=== PATIENT | female | born 1965 | race Caucasian/White ===

== ENCOUNTER 2023-10-09 11:36 | Inpatient (IN) | payer OTHER, SELFPAY ==
--- OUTSIDE RECORDS SUMMARY | 2023-10-09 11:40 | XMS_ITS | Clinical Summary ---
Author Organization [employer] [facility] Address [place], [place] [address] Care Team Providers Care Rag Sorter Name Role Phone Ramona Shook MD Unavailable [phone] Cecelia Moulton Primary Care Provider Elva Holly MD Unavailable [phone] Allergies No known active allergies Medications Medication Sig Dispensed Refills Start Date End Date Status IBUPROFEN 200 MG CAP take 600 mg as needed as needed 0 0 11/16/2008 Active cetirizine (ZYRTEC) 10 mg tablet Take 1 tablet by mouth once daily. 0 02/23/2019 Active triamcinolone 0.5% (ARISTOCORT) 0.5 % creamIndications:Bu g bite, initial encounter Apply topically to affected area(s) three times daily. 30 g 09/11/2022 Active polyethylene glycol-electrolyte (GOLYTELY) 236-22.74-6.74 -5.86 gram suspensionIndicatio ns:Colon cancer screening Drink 2 liters (1/2 of prep) the day before colonoscopy and drink 2 liters (other 1/2 of prep) 6 hours before colonoscopy appointment. 4000 mL 02/22/2023 Active LORazepam (ATIVAN) 0.5 mg tabIndications:Anxi ety TAKE ONE TABLET BY MOUTH TWICE DAILY NEEDED FOR ANXIETY 60 Tablet 2 05/08/2023 Active folic acid 1 mg tabletIndications:R heumatoid arthritis of multiple sites with negative rheumatoid factor (HC),High risk medication use TAKE ONE TABLET BY MOUTH ONE TIME DAILY 90 Tablet 05/07/2023 Active methotrexate (RHEUMATREX) 2.5 mg tabletIndications:R heumatoid arthritis of multiple sites with negative rheumatoid factor (HC) TAKE 8 TABLETS BY MOUTH ONCE WEEKLY. 96 Tablet 05/07/2023 Active melatonin 1 mg tablet Take 1 mg by mouth at bedtime. Active Actemra ACTPen 162 mg/0.9 mL subcutaneous penIndications:Rheu matoid arthritis of multiple sites with negative rheumatoid factor (HC) INJECT 1 PEN UNDER THE SKIN EVERY 7 DAYS. 4 mL 3 07/15/2023 Active cephalexin (KEFLEX) 500 mg capsuleIndications: Acute cystitis with hematuria Take 1 Capsule (500 mg) by mouth two times daily for 7 days. 14 Capsule 10/06/2023 10/13/2023 Active Active Problems Problem Noted Date Diagnosed Date Pap smear for cervical cancer screening 09/11/19 Overview: 09/2022 NIL/HPV negative Plan: Pap/HPV due in 5 years Vitamin D deficiency 04/12/2014 Kidney stones 05/01/2011 Gestational diabetes 05/01/2011 Rheumatoid arthritis(714.0) 05/01/2011 Contact dermatitis and other eczema, due to unspecified cause 05/01/2011 Anxiety State, Unspecified 06/10/2008 Encounters Date Type Department Care Team Description 10/09/2023 10:00 AM CDT Orders Only [facility] [address] [place] [address] Lab, [place] Lab 10/09/2023 9:30 AM CDT Ancillary Procedure [facility] [address] [place] [address] Arrived 10/09/2023 8:20 AM CDT Office Visit [facility] [address] [place] [address] Kaley Farias MD UTI (urgent care 10/05, abdominal pressure/pain lower radiates, frequency) 10/09/2023 Travel 10/08/2023 Nurse Triage [facility] [address] [place] [address] Cecelia Moulton PA Urinary Tract Infection 10/06/2023 3:00 PM CDT Nurse/Clinic Staff Only [facility] [address] [facility] [place] [address] Nurse/Clinic Staff Only (Labs virtual visit. ) 10/06/2023 1:20 PM CDT Telemedicine [facility] [address] [place] [phone] Erin Ureña, HYDROELECTRIC STATION OPERATOR Dysuria 10/06/2023 Orders Only [facility] [place] [address] [place] [address] Erin Ureña S, HYDROELECTRIC STATION OPERATOR <No scans attached> 10/06/2023 Travel 07/15/2023 Refill [facility] [address] [place] [address] Elva Holly MD Refill Request (Actemra Actpen) from Last 3 Months Immunizations Name Administration Dates Next Due COVID-19 vaccine (Moderna 100mcg/0.5mL) PF, MDV 09/13/2021,03/30/2021,08/11/2020,2020 COVID-19 vaccine (Moderna 50mcg/0.5mL) 12YO+ BIVALENT PF, MDV 02/22/2022 Influenza A (H1N1), Inactiva hedy (Age >=3 Years) 03/19/2009 Influenza Virus, Unspecified 02/11/2016,02/14/20 14 Influenza, IIV3 (Age >=3 years) 02/06/20 11,02/10/2010,03/10/2009,2004 Influenza, IIV4 03/16/2022,,03/11/2018,2012 Influenza, IIV4 (=>6mos) MDV 01/29/2020, 03/11/2019,02/06/2018,2015,02/07/2015 Influenza, Injectable, Mdck, Quadrivalent, W/preservative 03/19/2023 Td (Age >=7 Years) 10/25/2002 Tdap 05/01/2011 Family History Medical History Relation Name Comments Psoriasis Brother 1 Everardo Hyperlipidemia Brother 2 Félix Hypertension Brother 2 Félix No Known Problems Brother 3 Keny Allergic rhinitis Daughter Carisa Anxiety disorder Daughter Carisa Asthma Daughter Carisa Arthritis Father Cancer Father pancreatic Heart block Father Hypertension Father Heart attack Maternal Grandfather Stroke Maternal Grandmother Other Mother lung disease, n on hereditary Cancer-breast Paternal Aunt Cancer-colon Paternal Grandfather Diabetes Paternal Grandfather Heart Disease Paternal Grandfather Heart attack Paternal Grandfather Lung cancer Paternal Grandmother Other Son Norbert Guillian-Milan Syndrome Anesthesia Malignant Hyperthermia No Family History Cancer-ovarian No Family History Clotting disorder No Family History Relation Name Status Comments Brother 1 Everardo Alive Brother 2 Félix Alive Brother 3 Keny Alive Daughter Carisa Alive Father Maternal Grandfather Maternal Grandmother Mother Paternal Aunt Paternal Grandfather Paternal Grandmother Son Norbert Alive Social History Tobacco Use Types Packs/Day Years Used Date Smoking Tobacco: Never Smokeless Tobacco: Never Tobacco Cessation:Counseling Given: Yes Alcohol Use Standard Drinks/Week Comments Yes 0 (1 standard drink = 0.6 oz pur e alcohol) 2 glasses wine per day PHQ-2 Answer Date Recorded PHQ-2 TOTAL SCORE 0 11/23/2020 Social Connections Answer Date Recorded Frequency of Communication with Friends and Fami ly 0 10/09/2023 Financial Resource Strain Answer Date R ecorded Difficulty of Paying Living Expenses 3 10/09/2023 Difficulty of Paying Living Expenses Not on file 10/09/2023 Food Insecurity Answer Date Recorded Worried About Running Out of Food in the Last Ye ar 1 10/09/2023 Transportation Needs Answer Date Record ed Lack of Transportation (Medical) 1 10/09/2023 Housing Stability Answer Date Recorded Unable to Pay for Housing in the Last Year 1 10/09/2023 Sex and Gender Information Value Date Recorded Sex Assigned at Female 11/17/2020 2:37 PM CDT Gender Identity Not on file Sexual Orientation Straight 11/17/2020 2: 37 PM CDT Obstetrics History Para Term AB IAB SAB Ectopic Multiple Livin g Live Births 2 2 2 2 Date Outcome GA Total Labor Labor/2nd/3rd Weight Sex Delivery Anes PTL Bhakti A1 A5 Name Cl in 35w 0d 36w 0d Last Filed Vital Signs Vital Sign Reading Time Taken Comments Blood Pressure 115/81 10/09/2023 8:29 AM CDT Pulse 76 10/09/2023 8:29 AM CDT Temperature 36.6 ??C (97.9 ??F) 10/09/2023 8:29 AM CD T Respiratory Rate 16 06/11/2023 10:05 AM 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 Oxygen Saturation 97% 10/09/2023 8:29 AM CDT Inhaled Oxygen Concentration - - Weight 78.6 kg (173 lb 3.2 oz) 10/09/2023 8:29 A M CDT Height 166.4 cm (5' 5.5) 09/11/2022 8:40 AM CDT Body Mass Index 28.38 09/11/2022 8:40 AM CDT Plan of Treatment Upcoming Encounters Date Type Department Care Team (Late st Contact Info) Description 12/24/2023 10:00 AM CDT Office Visit [facility] [address] [place] [address] Elva Holly MD [address] [place] [address] Health Maintenance Due Date Last Done Comments Pneumococcal series for age 6-64 (1 of 2 - PCV) 1971 HIV for age 15-65 1980 Zoster (shingles) series for age 50+ (1 of 2) 1984 Tetanus booster 05/01/2021 05/01/2011, 04/13, 10/25/2002 Fecal testing non-DNA (FIT,FOBT,iFOBT) for age 45-75 07/26/2021 07/26/2020, 12/19/2017, 10/31/2016 Depression screening for age 12+ 11/23/2021 11/23/2020, 10/21/2019, 10/03/2018, Additional history exists COVID-19 vaccine series ( season) 2023 03/19/2023, 02/22/2022, 09/13/2021, Additional history exists BMI (ht and wt on same day) for age 18+ 09/12/2023 09/11/2022, 01/04/2022, 11/23/2020, Additional history exists Influenza for age 50-64 01/12/2024 03/19/20 23, 03/16/2022, 02/09/2021, Additional history exists Mammogram for age 45-75 01/25/2024 01/25/20, 11/18/2020, 11/01/2017, Additional history exists Lipids for age 45-75 09/12/2027 09/11/2022, 11/18/2020, 09/02/2018, Additional history exists Pap test for age 21-65 09/12/2027 , 09/11/2022, 09/02/2018, Additional history exists Tdap Completed 05/01/2011 Hepatitis C screening for ag e 18-79 Completed 07/23/2019 Medical Devices Implanted Type Area Trench Digger Device Identifier Shelf Expiration Date Model / Serial / Lot Stent Uret [id number] Silhouette - [id number] Implanted:Qty: 1 on 09/13/2016 by Félix Dunaway MD at [facility] Right: [employer] [id number] / / [id number] Procedures Procedure Name Priority Date/Time Associated Diagnosis Comments CT ABDOMEN PELVIS STONE PROTOCOL WO STAT 10/09/2023 9:40 AM CDT Pelvic pain Complicated UTI (urinary tract infection) History of nephrolithiasis CBC WITH AUTO DIFFERENTIAL STAT 10/09/2023 9:25 AM CDT Pelvic pain Complicated UTI (urinary tract infection) History of nephrolithiasis CBC WITH AUTO DIFFERENTIAL STAT 10/09/2023 9:25 AM CDT Pelvic pain Complicated UTI (urinary tract infection) History of nephrolithiasis UA W/ SEDIMENT EXAM REFLEXED PER CRITERIA Routine 10/09/2023 8:41 AM CDT Pelvic pain Complicated UTI (urinary tract infection) History of nephrolithiasis TRICHOMONAS, SANDRA, AND BACTERIAL VAGINOSIS BY JORGE Routine 10/06/2023 2:34 PM CDT UTI symptoms URINALYSIS MICROSCOPIC STAT 10/06/2023 2:20 PM CDT UTI symptoms URINE CULTURE STAT 10/06/2023 2:20 PM CDT UTI symptoms UA W/ SEDIMENT EXAM REFLEXED PER CRITERIA STAT 10/06/2023 2:20 PM CDT UTI symptoms XR MAMMO THERESA BILAT SCREEN Routine 01/24/2023 1:25 PM CDT Screening mammogram for breast cancer LIPID PANEL W REFLEX MEASURED LDL Routine 09/11/2022 9:41 AM CDT Screening cholesterol level HPV THIN PREP Routine 09/11/2022 9:15 AM CDT Screening for cervical cancer OCCULT BLOOD IFOBT STOOL Routine 07/26/2020 11:15 AM CDT Colon cancer screening ANTI HCV Routine 07/23/2019 11:49 AM CDT Rheumatoid arthritis of multiple sites with negative rheumatoid factor (HC) from Last 3 Months or Most Recently Relevant to Health Maintenance Results * CT ABDOMEN PELVIS STONE PROTOCOL WO (10/09/2023 9:40 AM CDT) Anatomical Region Laterality Modality Abdomen, Pelvis, AORTA, LIVER, SPLEEN Computed Tomography 10/09/2023 10:1 8 AM CDT Impressions 10/09/2023 10:18 AM CDT 1. Perforated sigmoid diverticulitis with a 2.9 centimeter adjacent abscess versus phlegmon. This is located deep in the central pelvis and is unlikely to be accessible percutaneously. 2. Bilateral nephrolithiasis. Please note that all CT scans at this facility use dose modulation, iterative reconstruction, and/or weight-based dosing when appropriate to reduce radiation dose to as low as reasonably achievable. Dictated by Jzazmine [facility] MD @ 10/09/2023 10:18:53 AM (Electronically Signed) Narrative 10/09/2023 10:18 AM CDT For Patients: ??As a result of the Century Cures Act, medical imaging exams and procedure reports are released immediately into your electronic medical record. ??You may view this report before your referring provider. ??If you have questions, please contact your health care provider. INDICATION: Pelvic pain, complicated urinary tract infection, history of nephrolithiasis COMPARISON: 08/23/2021 TECHNIQUE: CT of the abdomen and pelvis without intravenous contrast. Multiplanar reformats are included. Contrast: None FINDINGS: Lung bases: Normal. Liver: Normal. No mass. Gallbladder and bile ducts: Cholecystectomy. Pancreas: Normal. Spleen: Normal. Adrenal glands: Normal. Kidneys: Normal renal size and position. No perinephric stranding. No cyst or solid mass. Multiple bilateral nonobstructing renal calculi measuring up to 3-4 millimeters. Mild bilateral pelviectasis and ureterectasis. No ureteral calculi seen. Urinary bladder: Normal. Vessels: Few scattered atherosclerotic vascular calcifications. Pelvis: No cyst or mass. Bowel: Sigmoid diverticulitis. There is a short segment of sigmoid and Marguerite diverticular thickening. There is significant adjacent edema and a small amount of fluid and extraluminal air. The area of phlegmonous change with extraluminal air measures about 1.6 x 2.9 x 2.2 centimeters and is located deep within the central pelvis. Moderate stool burden. Appendectomy. No dilated or inflamed appearing small bowel. Lymph nodes: Mildly prominent mesenteric lymph nodes appear to be reactive. No worrisome adenopathy. Peritoneum: No ascites. No free air. Bones: No fractures. No focal worrisome bone lesions. Abdominal wall: No hernia. Procedure Note Jazzmine [facility] MD - 10/09/2023 For Patients: As a result of the Cures Act, medical imagingexams and procedure reports are released immediately into your electronicmedical record. You may view this report before your referring provider.If you have questions, please contact your health care provider. INDICATION: Pelvic pain, complicated urinary tract infection, history ofnephrolithiasis COMPARISON: 08/23/2021 TECHNIQUE: CT of the abdomen and pelvis without intravenous contrast. Multiplanarreformats are included. Contrast: None FINDINGS: Lung bases: Normal. Liver: Normal. No mass. Gallbladder and bile ducts: Cholecystectomy. Pancreas: Normal. Spleen: Normal. Adrenal glands: Normal. Kidneys: Normal renal size and position. No perinephric stranding. No cystor solid mass. Multiple bilateral nonobstructing renal calculi measuringup to 3-4 millimeters. Mild bilateral pelviectasis and ureterectasis. Noureteral calculi seen. Urinary bladder: Normal. Vessels: Few scattered atherosclerotic vascular calcifications. Pelvis: No cyst or mass. Bowel: Sigmoid diverticulitis. There is a short segment of sigmoid andPeri diverticular thickening. There is significant adjacent edema and asmall amount of fluid and extraluminal air. The area of phlegmonous changewith extraluminal air measures about 1.6 x 2.9 x 2.2 centimeters and islocated deep within the central pelvis. Moderate stool burden.Appendectomy. No dilated or inflamed appearing small bowel. Lymph nodes: Mildly prominent mesenteric lymph nodes appear to bereactive. No worrisome adenopathy. Peritoneum: No ascites. No free air. Bones: No fractures. No focal worrisome bone lesions. Abdominal wall: No hernia. IMPRESSION: 1. Perforated sigmoid diverticulitis with a 2.9 centimeter adjacentabscess versus phlegmon. This is located deep in the central pelvis and isunlikely to be accessible percutaneously. 2. Bilateral nephrolithiasis. Please note that all CT scans at this facility use dose modulation,iterative reconstruction, and/or weight-based dosing when appropriate toreduce radiation dose to as low as reasonably achievable. Dictated by Jazzmine [facility] MD @ 10/09/2023 10:18:53 AM (Electronically Signed) Kaley Farias MD CT * (ABNORMAL) CBC WITH AUTO DIFFERENTIAL (10/09/2023 9:25 AM CDT) Pathologist [facility] WHITE BLOOD COUNT 9.5 4.5 - 11.0 thou/cu mm 10/09/2023 9:29 AM CDT [facility] RED BLOOD COUNT 4.73 4.00 - 5.20 mil/cu mm 10/09/2023 9:29 AM CDT [facility] HEMOGLOBIN 14.8 12.0 - 16.0 g/dL 10/09/2023 9:29 AM CDT [facility] HEMATOCRIT 43.7 33.0 - 51.0 % 10/09/2023 9:29 AM CDT [facility] MCV 92 80 - 100 fL 10/09/2023 9:29 AM CDT [facility] MCH 31.3 26.0 - 34.0 pg 10/09/2023 9:29 AM CDT [facility] MCHC 33.9 32.0 - 36.0 g/dL 10/09/2023 9:29 AM CDT [facility] RDW 13.4 11.5 - 15.5 % 10/09/2023 9:29 AM CDT [facility] PLATELET COUNT 170 140 - 440 thou/cu mm 10/09/2023 9:29 AM CDT [facility] MPV 10.3 6.5 - 11.0 fL 10/09/2023 9:29 AM CDT [facility] % NEUT 77.8 % 10/09/2023 9:29 AM CDT [facility] % LYMPH 8.5 % 10/09/2023 9:29 AM CDT [facility] % MONO 11.1 % 10/09/2023 9:29 AM CDT [facility] % EOS 2.4 % 10/09/2023 9:29 AM CDT [facility] % BASO 0.2 % 10/09/2023 9:29 AM CDT [facility] ABSOLUTE NEUTROPHILS 7.4(H) 1.7 - 7.0 thou/cu mm 10/09/2023 9:29 AM CDT [facility] ABSOLUTE LYMPHOCYTES 0.8(L) 0.9 - 2.9 thou/cu mm 10/09/2023 9:29 AM CDT [facility] ABSOLUTE MONOCYTES 1.1(H) <0.9 thou/cu mm 10/09/2023 9:29 AM CDT [facility] ABSOLUTE EOSINOPHILS 0.2 <0.5 thou/cu mm 10/09/2023 9:29 AM CDT [facility] ABSOLUTE BASOPHILS 0.0 <0.3 thou/cu mm 10/09/2023 9:29 AM CDT [facility] Blood BLOOD SPECIMEN / Unknown Venipuncture / Unknown 10/09/2023 9:25 AM CDT 10/09/2023 9:26 AM CDT Kaley Farias MD HEMATOLOGY [facility] [address] [place] [address], * UA W/ SEDIMENT EXAM REFLEXED PER CRITERIA (10/09/2023 8:41 AM CDT) Only the most recent of2 resultswithin the time period is included. COLOR Yellow Yellow Color 10/09/2023 9:15 AM CDT [facility] CLARITY Clear Clear Clarity 10/09/2023 9:15 AM CDT [facility] SPECIFIC GRAVITY,URINE 1.010 1.010, 1.015, 1.020, 1.025 10/09/2023 9:15 AM CDT [facility] PH,URINE 7.0 6.0, 7.0, 8.0, 5.5, 6.5, 7.5, 8.5 10/09/2023 9:15 AM CDT [facility] UROBILINOGEN, QUALITATIVE Normal Normal EU/dl 10/09/2023 9:15 AM CDT [facility] PROTEIN, URINE Negative Negative mg/dL 10/09/2023 9:15 AM CDT [facility] GLUCOSE, URINE Negative Negative mg/dL 10/09/2023 9:15 AM CDT [facility] KETONES,URINE Negative Negative mg/dL 10/09/2023 9:15 AM CDT [facility] BILIRUBIN,URI NE Negative Negative 10/09/2023 9:15 AM CDT [facility] OCCULT BLOOD,URINE Negative Negative 10/09/2023 9:15 AM CDT [facility] NITRITE Negative Negative 10/09/2023 9:15 AM CDT [facility] LEUKOCYTE ESTERASE Negative Negative 10/09/2023 9:15 AM CDT [facility] Urine URINE SPECIMEN / Unknown Non-Blood / Unknown 10/09/2023 8:41 AM CDT 10/09/2023 9:12 AM CDT Kaley Farias MD URINE [facility] [address] [place] [id number], * TRICHOMONAS, SANDRA, AND BACTERIAL VAGINOSIS BY JORGE (10/06/2023 2:34 PM CDT) SANDRA SPECIES Negative Negative 1:21 AM CDT [facility] SANDRA GLABRATA Negative Negative 10/07/2023 1:21 AM CDT [facility] TRICHOMONAS VVA Negative Negative 1:21 AM CDT [facility] BACTERIAL VAGINOSIS Negative Negative 10/07/2023 1:21 AM CDT [facility] Other VAGINAL SWAB / Unknown Non-Blood / Unknown 10/06/2023 2:34 PM CDT 10/06/2023 2:34 PM CDT Erin Ureña NP MICROBIOLOGY [facility] [address] [place] [address], * (ABNORMAL) URINALYSIS MICROSCOPIC (10/06/2023 2:20 PM CDT) RBC 0-2 0-2, None Seen /HPF 10/06/2023 10:09 PM CDT [facility] WBC >100(A) 0-2, 3-5, None Seen /HPF 10/06/2023 10:09 PM CDT [facility] BACTERIA Few None Seen, Rare, Few Bacteria/ HPF 10/06/2023 10:09 PM CDT [facility] EPITHELIAL CELLS None Seen None Seen, Few Epi/HPF 10/06/2023 10:09 PM CDT [facility] HYALINE CASTS 0-2 0-2, 3-5 /LPF 10/06/2023 10:09 PM CDT [facility] Urine URINE SPECIMEN / Unknown Non-Blood / Unknown 10/06/2023 2:20 PM CDT 10/06/2023 2:20 PM CDT Erin Ureña NP URINE [facility] [address] [place] [address], * (ABNORMAL) URINE CULTURE (10/06/2023 2:20 PM CDT) CULTURE RESULT(A) 10/09/2023 7:09 AM CDT [facility] CULTURE >100,000 CFU/mL Escherichia coli 10/09/2023 7:09 AM CDT [facility] Urine URINE SPECIMEN / Unknown Non-Blood / Unknown 10/06/2023 2:20 PM CDT 10/06/2023 2:20 PM CDT Narrative Organism Antibiotic Method Susceptibility Escherichia coli TRIMETHOPRIM/SULF <=1/19: S Escherichia coli AMPICILLIN <=2: S Escherichia coli CEFAZOLIN-UC <=4: S Comment:Cefazolin-UC interpretations are for therapy of uncomplicated UTIs due to E.coli, K.pneumoniae, or P.mirablis. Cefazolin breakpoint is used as a surrogate to predict results for the oral agents - cefdinir, cefuroxime, and cephalexin, when used for therapy of uncomplicated UTIs due to E coli, K, pneumoniae, and P. mirabilis. The FDA recommends cefadroxil susceptibility can be deduced from cefazolin. Escherichia coli GENTAMICIN <=1: S Escherichia coli CEFTRIAXONE <=1: S Escherichia coli CEFTAZIDIME <=1: S Escherichia coli LEVOFLOXACIN <=0.12: S Escherichia coli CIPROFLOXACIN <=0.25: S Escherichia coli PIPERACILLIN/TAZO <=4: S Escherichia coli AMPICILLIN/SULBACTAM <=2: S Escherichia coli CEFEPIME <=1: S Escherichia coli TOBRAMYCIN <=1: S Escherichia coli MEROPENEM <=0.25: S Escherichia coli NITROFURANTOIN <=16: S Erin Ureña NP MICROBIOLOGY [facility] [address] [place] [address], [place] * XR MAMMO THERESA BILAT SCREEN (01/24/2023 1:25 PM CDT) Anatomical Region Laterality Modality BREASTS, Breast Left, Breast Right Bilateral Mammography Impressions 01/24/2023 4:02 PM CDT ??There is no radiographic evidence for malignancy. ??Recommend annual mammograms. MAMMOGRAM ASSESSMENT: ??ACR 1 Negative PATIENTS: You will also receive a letter with your examination results in an easy to read format. ??If you have questions about your results, please contact your referring provider. Narrative 01/24/2023 4:02 PM CDT For Patients: As a result of the Cures Act, medical imaging exams and procedure reports are released immediately into your electronic medical record. You may view this report before your referring provider. If you have questions, please contact your health care provider. XR MAMMO THERESA BILAT SCREEN [[id number]] CLINICAL HISTORY: ??This is an asymptomatic 57 y.o. patient. INDICATION FOR EXAM: Mammogram Screening. TECHNIQUE: CC & MLO views were obtained. ??This study was evaluated with the assistance of Computer-Aided Detection. Breast Tomosynthesis was used in interpretation. COMPARISON FILM: Yes 11/18/20 [employer] 11/01/17 [facility] FINDINGS: ??The breasts are heterogeneously dense, which may obscure small masses. There are no dominant masses, suspicious micro calcifications or areas of architectural distortion. Cecelia ROCA MAMMO * (ABNORMAL) LIPID PANEL W REFLEX MEASURED LDL (09/11/2022 9:41 AM CDT) CHOLESTEROL,TOTAL 213 mg/dL 023 6:49 PM CDT [facility] Comment: Cholesterol, Total Reference Ranges Desirable <200 mg/dL Borderline 200-239 mg/dL High >=240 mg/dL TRIGLYCERIDES 83 <150 mg/dL 09/11/2022 6:49 PM CDT [facility] HDL CHOLESTEROL 65 >40 mg/dL 3 6:49 PM CDT [facility] NON-HDL CHOLESTEROL 148(H) <145 mg/dl 09/11/2022 6:49 PM CDT [facility] CHOL/HDL RATIO 3.28 <4.50 09/11/2022 6:49 PM CDT [facility] LDL CHOLESTEROL 131(H) <=130 mg/dL 09/11/2022 6:49 PM CDT [facility] VLDL CHOLESTEROL 17(L) >30 mg/dL 09/12/19 6:49 PM CDT [facility] PROVIDER ORDERED STATUS RANDOM 09/11/2022 6:49 PM CDT [facility] Blood BLOOD SPECIMEN / Unknown Venipuncture / Unknown 09/11/2022 9:41 AM CDT 09/11/2022 9:43 AM CDT Cecelia ROCA CHEMISTRY [facility] [address] [place] [address], * HPV HIGH RISK (09/11/2022 9:15 AM CDT) TYPE 16 Negative Negative 09/14/2022 11:02 AM CDT [facility] TYPE 18 Negative Negative 09/14/2022 11:02 AM CDT [facility] OTHER HIGH RISK TYPES Negative Negative 09/14/2022 11:02 AM CDT [facility] Other (Cervical) Non-Blood / Unknown 09/11/2022 9:15 AM CDT 09/12/2022 1:12 PM CDT Narrative [facility] - 09/14/2022 11:02 AM CDT HPV types 16, 18, 31, 33, 35, 39, 45, 51, 52, 56, 58, 59, 66 and 68 DNA were undetectable or below the pre-set threshold. Methodology: Exaptiveas 4800 HPV Test Cecelia ROCA [facility]OLOG[facility] [address] [place] [address], [place] * OCCULT BLOOD IFOBT STOOL (07/26/2020 11:15 AM CDT) STOOL BLOOD ,IFOBT Negative Negative 07/27/2020 11:48 AM CDT [facility] Stool STOOL SPECIMEN / Unknown Non-Blood / Unknown 07/26/2020 11:15 AM CDT 07/27/2020 11:36 AM CDT Cecelia [facility] Performing Organization Address City/[facility]/ZIP Co de Phone Number [facility] [address] [place] [address], * ANTI HCV (07/23/2019 11:49 AM CDT) Pathologist [facility] HEPATITIS C ANTIBODY Non-React lul Non-React lul 07/23/2019 4:04 PM CDT [facility] Comment:Antibodies to HCV no t detected; does not exclude the possibility of exposure to HCV. Blood BLOOD SPECIMEN / Unknown Venipuncture / Unknown 07/23/2019 11:49 AM CDT 07/23/2019 11:49 AM CDT Elva Holly MD SEND OUTS [facility] [address] [place] [address], [place] from Last 3 Months or Most Recently Relevant to Health Maintenance Advance Directives * Full Code (Latest Code Status on File) Date Activated Date Inactivated Comments 09/13/2016 11:17 AM 09/13/2016 6:48 PM Care Teams Rag Sorter Relationship Specialty Start Date End Date Cecelia Moulton PA [address] [place] [address] PCP - General Physician Corporate Account Executive 02/23/19 Ramona Shook MD Rheumatology 04/14/14 Elva Holly MD [address] [facility] [address] [place] [address] Rheumatology Rheumatology 07/23/19
--- OUTSIDE RECORDS SUMMARY | 2023-10-09 11:40 | XMS_ITS | Continuity of Care Document ---
Author Organization [facility] Address [address] [place] [address] Phone Care Team Providers Care Braille Translator Name Role Phone Ramona Shook MD Unavailable Unavailable Allergies, Adverse Reactions, Alerts Substance Reaction Status Criticality erythromycin base Rash Active No Informa tion amoxicillin Rash Active No Information Medications Medication Instructions Dosage Effective Dates (start - stop) Status Comments Actemra ACTPen 162 mg/0.9 mL subcutaneous pen injector inject (162MG) by subcutaneous route every week 162 MG - Active PA approved from 11/20/18 through 12/19/20. barry methotrexate sodium 2.5 mg tablet 8 tabs PO weekly - Active Patient ta kes on Saturday Zyrtec 10 mg capsule take 1 tablet by oral route every day 1 tablet - Active ibuprofen 600 mg Tab as needed - Active lorazepam 0.5 mg Tab asw needed - Active Actemra ACTPen 162 mg/0.9 mL subcutaneous pen injector inject (162MG) by subcutaneous route every week 162 MG - No Longer Active PA approved from 11/20/18 through 12/19/20. barry Procedures Procedure Date Office/Outpatient Visit, Est Routine Venipuncture Assay Of Serum Albumin Assay Of Creatinine Transferase (Ast) (Sgot) Alanine Amino (Alt) (Sgpt) Complete Cbc WAuto Diff Wbc Office/Outpatient Visit, Est Routine Venipuncture Complete Cbc WAuto Diff Wbc Assay Of Serum Albumin Assay Of Creatinine Transferase (Ast) (Sgot) Alanine Amino (Alt) (Sgpt) Office/Outpatient Visit, Est Routine Venipuncture Assay Of Serum Albumin Assay Of Creatinine Transferase (Ast) (Sgot) Alanine Amino (Alt) (Sgpt) Complete Cbc WAuto Diff Wbc Office/Outpatient Visit, Est Office/Outpatient Visit, Est Routine Venipuncture Complete Cbc WAuto Diff Wbc Assay Of Serum Albumin Assay Of Creatinine Transferase (Ast) (Sgot) Alanine Amino (Alt) (Sgpt) Tb Test, Cell Immun Measure Office/Outpatient Visit, Est Routine Venipuncture Complete Cbc WAuto Diff Wbc Rbc Sed Rate, Nonautomated Transferase (Ast) (Sgot) CReactive Protein Office/Outpatient Visit, Est Office/Outpatient Visit, Est Office/Outpatient Visit, Est Office/Outpatient Visit, Est Office/Outpatient Visit, Est Routine Venipuncture Complete Cbc WAuto Diff Wbc Assay Of Serum Albumin Assay Of Creatinine Transferase (Ast) (Sgot) Alanine Amino (Alt) (Sgpt) Office/Outpatient Visit, Est Office/Outpatient Visit, Est Routine Venipuncture CCP Antibody Rheumatoid Factor, IGM Rheumatoid Factor, IGG, IGA Office/Outpatient Visit, Est Office/Outpatient Visit, Est Office/Outpatient Visit, Est Routine Venipuncture Complete Cbc WAuto Diff Wbc Rbc Sed Rate, Nonautomated CReactive Protein Assay Of Serum Albumin Assay Of Creatinine Transferase (Ast) (Sgot) Alanine Amino (Alt) (Sgpt) Office/Outpatient Visit, Est Office/Outpatient Visit, Est Routine Venipuncture Complete Cbc WAuto Diff Wbc Assay Of Serum Albumin Assay Of Creatinine Transferase Ast Sgot Alanine Amino Alt Sgpt Office/Outpatient Visit, Est Routine Venipuncture Complete Cbc WAuto Diff Wbc Assay Of Serum Albumin Assay Of Creatinine Transferase Ast Sgot Alanine Amino Alt Sgpt Office/Outpatient Visit, Est Routine Venipuncture CReactive Protein Complete Cbc WAuto Diff Wbc Assay Of Serum Albumin Assay Of Creatinine Transferase Ast Sgot Alanine Amino Alt Sgpt Advance Directives Directive Yes / No Effective Date File Name No Information Encounters Encounter Description Practice Location Reason(s) For Visit Diagnoses Date Provider Providers Copied on Encounter [facility] , [address], [place], [address], [place] tel:[phone] [facility] , No Information 0 Boone Greene. [facility] [address], [place], [address], [place]. tel:[phone] [facility] , [address], [place], [address], [place] tel:[phone] [facility] , No Information 0 Federica Bolivar. [facility] [address], [place], [address], [place]. tel:[phone] [facility] , [address], [place], [address], [place] tel:[phone] [facility] , No Information 0 Boone Greene. [facility] [address], [place], [address], [place]. tel:[phone] Office/Outpa tient Visit, Est [facility] , [address], [place], [address], [place] tel:[phone] [facility] , Rheumatoid arthritis (chief complaint)Co ugh (chief complaint)Mo nitor Chronic High Risk Meds (chief complaint) Rheu arthritis w rheu factor mult site w/o org/sys involvCoughO ther intermediate card tender (current) drug therapy 9 Boone Greene. [facility] [address], [place], [address], [place]. tel:[phone] Referring Provider: Ramona Carrington, [facility] [address], [place], [address]. tel:[phone] Office/Outpa tient Visit, Est [facility] , [address], [place], [address], [place] tel:[phone] [facility] , Rheumatoid arthritis (chief complaint) Rheu arthritis w rheu factor mult site w/o org/sys involvEffusi on, right kneeOther custodial (current) drug therapy 9 Boone Greene. [facility] [address], [place], [address], [place]. tel:[phone] Referring Provider: Ramona Carrington, [facility] [address], [place], [address]. tel:[phone] Office/Outpa tient Visit, Est [facility] , [address], [place], [address], [place] tel:[phone] [facility] , Rheumatoid arthritis (chief complaint)Ri ght knee pain (chief complaint)Mo nitor Chronic High Risk Meds (chief complaint) Rheu arthritis w rheu factor mult site w/o org/sys involvPain in right kneeVitamin D deficiencyOt her intermediate card tender (current) drug therapy 9 Boone Greene. [facility] [address], [place], [address], [place]. tel:[phone] Referring Provider: Ramona Carrington, [facility] [address], [place], [address]. tel:[phone] Office/Outpa tient Visit, Est [facility] , [address], [place], [address], [place] tel:[phone] [facility] , Rheumatoid arthritis (chief complaint)Vi tamin D deficiency (chief complaint)Mo nitor Chronic High Risk Meds (chief complaint) Rheu arthritis w rheu factor mult site w/o org/sys involvOther custodial (current) drug therapyPain in left hipPain in right knee 9 Boone Greene. [facility] [address], [place], [address], [place]. tel:[phone] Referring Provider: Ramona Carrington, [facility] [address], [place], [address]. tel:[phone] Office/Outpa tient Visit, Est [facility] , [address], [place], [address], [place] tel:[phone] [facility] , Rheumatoid arthritis (chief complaint)Mo nitor Chronic High Risk Meds (chief complaint) Rheu arthritis w rheu factor [facility] site w/o org/sys involvOther custodial (current) drug therapy 0 8 Boone Greene. [facility] [address], [place], [address], [place]. tel:[phone] Referring Provider: Ramona Carrington, [facility] [address], [place], [address]. tel:[phone] Office/Outpa tient Visit, Est [facility] , [address], [place], [address], [place] tel:[phone] [facility] Rheumatoid arthritis (chief complaint)Ri ght wrist tenosynovect carmita (chief complaint)Mo nitor Chronic High Risk Meds (chief complaint) Rheu arthritis w rheu factor [facility] site w/o org/sys involvOther synovitis and tenosynoviti s, right handOther acquired deformities of unspecified footOther custodial (current) drug therapy 8 Boone Greene. [facility] [address], [place], [address], [place]. tel:[phone] Referring Provider: Ramona Carrington, [facility] [address], [place], [address]. tel:[phone] Office/Outpa tient Visit, Est [facility] , [address], [place], [address], [place] tel:[phone] [facility] , Rheumatoid arthritis (chief complaint)Te nosynovitis right wrist (chief complaint)Rh eumatoid nodules (chief complaint)Fo ot deformities (chief complaint)Dr rosales monitoring (chief complaint) RA w/ rheumatoid factor of multiple sitesOther synovitis and tenosynoviti s, right handRheumato id nodule, right handOther acquired hammer toesLong term current drug therapy 8 Boone Greene. [facility] [address], [place], [address], [place]. tel:[phone] Referring Provider: Ramona Carrington, [facility] [address], [place], [address]. tel:[phone] Office/Outpa tient Visit, Est [facility] , [address], [place], [address], [place] tel:[phone] [facility] , Rheumatoid arthritis (chief complaint)Ri ght wrist pain (chief complaint)Mo nitor Chronic High Risk Meds (chief complaint) RA w/ rheumatoid factor of multiple sitesOther synovitis and tenosynoviti s, right handOther acquired deformities of unspecified footLong term current drug therapy 8 Boone Greene. [facility] [address], [place], [address], [place]. tel:[phone] Referring Provider: Ramona Carrington, [facility] [address], [place], [address]. tel:[phone] Office/Outpa tient Visit, Est [facility] , [address], [place], [address], [place] tel:[phone] [facility] , Rheumatoid arthritis (chief complaint)Mo nitor Chronic High Risk Meds (chief complaint) RA w/ rheumatoid factor of multiple sitesPain in unspecified footOther synovitis and tenosynoviti s, right handLong term current drug therapy 7 Boone Greene. [facility] [address], [place], [address], [place]. tel:[phone] Referring Provider: Ramona Carrington, [facility] [address], [place], [address]. tel:[phone] Office/Outpa tient Visit, Est [facility] , [address], [place], [address], [place] tel:[phone] [facility] , Rheumatoid arthritis (chief complaint)Mo nitor Chronic High Risk Meds (chief complaint)Medina mmer toes (chief complaint) RA w/ rheumatoid factor of multiple sitesPneumon iaOther acquired hammer toesLong term current drug therapy 7 Boone Greene. [facility] [address], [place], [address], [place]. tel:[phone] Referring Provider: Ramona Carrington, [facility] [address], [place], [address]. tel:[phone] Office/Outpa tient Visit, Est [facility] , [address], [place], [address], [place] tel:[phone] [facility] , Rheumatoid arthritis (chief complaint)Mo nitor Chronic High Risk Meds (chief complaint) RA w/ rheumatoid factor of multiple sitesPain in left hipLong term current drug therapy 6 Boone Greene. [facility] [address], [place], [address], [place]. tel:[phone] Referring Provider: Ramona Carrington, [facility] [address], [place], [address]. tel:[phone] Office/Outpa tient Visit, Est [facility] , [address], [place], [address], [place] tel:[phone] [facility] Rheumatoid arthritis (chief complaint)Mo nitor Chronic High Risk Meds (chief complaint) RA w/ rheumatoid factor of multiple sitesLong term current drug therapy Boone Greene. [facility] [address], [place], [address], [place]. tel:[phone] Referring Provider: Ramona Carrington, [facility] [address], [place], [address]. tel:[phone] Office/Outpa tient Visit, Est [facility] , [address], [place], [address], [place] tel:[phone] [facility] , Rheumatoid arthritis (chief complaint)Mo nitor Chronic High Risk Meds (chief complaint) Rheumatoid arthritisThe rapeutic Drug Monitoring Boone Greene. [facility] [address], [place], [address], [place]. tel:[phone] Referring Provider: Ramona Carrington, [facility] [address], [place], [address]. tel:[phone] Office/Outpa tient Visit, Est [facility] , [address], [place], [address], [place] tel:[phone] [facility] , Rheumatoid arthritis (chief complaint)Mo nitor Chronic High Risk Meds (chief complaint) Rheumatoid ArthritisThe rapeutic Drug Monitoring Boone Greene. [facility] [address], [place], [address], [place]. tel:[phone] Referring Provider: Ramona Carrington, [facility] [address], [place], [address]. tel:[phone] Office/Outpa tient Visit, Est [facility] , [address], [place], [address], [place] tel:[phone] [facility] , Rheumatoid Arthritis (chief complaint)Mo nitor chronic high risk medications (chief complaint) Rheumatoid ArthritisThe rapeutic Drug Monitoring Boone Greene. [facility] [address], [place], [address], [place]. tel:[phone] Referring Provider: Ramona Carrington, [facility] [address], [place], [address]. tel:[phone] Office/Outpa tient Visit, Est [facility] , [address], [place], [address], [place] tel:[phone] [facility] , Rheumatoid Arthritis (chief complaint)Dr y eyes (chief complaint)Mo nitor chronic high risk medications (chief complaint) Rheumatoid ArthritisOth er tenosynoviti s of hand and wristTherape [facility] Drug MonitoringTe ar film insufficienc y, unspecified 4 Boone Greene. [facility] [address], [place], [address], [place]. tel:[phone] Referring Provider: Ramona Carrington, [facility] [address], [place], [address]. tel:[phone] Office/Outpa tient Visit, Est [facility] , [address], [place], [address], [place] tel:[phone] [facility] , Rheumatoid Arthritis (chief complaint)Mo nitor chronic high risk medications (chief complaint) Rheumatoid [facility]ritisThe [facility] Drug MonitoringTe ar film insufficienc y, unspecified 3 Boone Greene. [facility] [address], [place], [address], [place]. tel:[phone] Referring Provider: Ramona Carrington, [facility] [address], [place], [address]. tel:[phone] Office/Outpa tient Visit, Est [facility] , [address], [place], [address], [place] tel:[phone] [facility] , Rheumatoid Arthritis (chief complaint)Mo nitor chronic high risk medications (chief complaint) Rheumatoid ArthritisGan glion, unspecifiedE nthesopathy of hip regionTherap eutic Drug Monitoring 3 Boone Greene. [facility] [address], [place], [address], [place]. tel:[phone] Referring Provider: Ramona Carrington, [facility] [address], [place], [address]. tel:[phone] Office/Outpa tient Visit, Est [facility] , [address], [place], [address], [place] tel:[phone] [facility] , Rheumatoid Arthritis (chief complaint)Mo nitor chronic high risk medications (chief complaint) Rheumatoid ArthritisThe rapeutic Drug Monitoring 0 3 Boone Greene. [facility] [address], [place], [address], [place]. tel:[phone] Referring Provider: Rmaona Carrington, [facility] [address], [place], [address]. tel:[phone] Office/Outpa tient Visit, Est [facility] , [address], [place], [address], [place] tel:[phone] [facility] , Rheumatoid Arthritis (chief complaint)Mo nitor chronic high risk medications (chief complaint) Rheumatoid ArthritisPai n in limbTherapeu tic Drug Monitoring 2 Boone Greene. [facility] [address], [place], [address], [place]. tel:[phone] Family History Family Member Type Diagnosis Age At Onset father Problem (finding) hypertension Father Problem (finding) Allergies Paternal grandfather Problem (finding) cancer of colon maternal grandmother Problem (finding) hypertension Father Problem (finding) malignant neoplasm of p ancreas Paternal grandfather Problem (finding) Diabetes mellit us maternal grandfather Problem (finding) heart disease Brother Problem (finding) Allergies Payers Payer name Insurance type Covered green party ID Jovan ceja(s) [facility] [id number] Social History Type Description Quantity Date Captured Comments Alcohol Use Details Unknown Caffeine Use Details Unknown Tobacco Use Status No Information Smoking Status No Information Sex Female Chief Complaint And Reason For Visit No Information Reason For Referral Reason For Referral No Information Plan Of Treatment Date Type Action Status Referral Ordered: Coretta Healy -Hand surgery (related to Other synovitis and tenosynovitis, right hand) ordered Referral Referred To: Coretta Healy [address] [place] [address] [place], [place] [id number] Ordered: Referrals: Hand surgery. oCretta Healy. Evaluate and treat ordered History Of Present Illness Encounter Date Complaint History Of Prese nt Illness Rheumatoid arthritis Cough Monitor Chronic High Risk Meds Rheumatoid arthritis Rheumatoid arthritis Right knee pain Monitor Chronic High Risk Meds Rheumatoid arthritis Vitamin D deficiency Monitor Chronic High Risk Meds Rheumatoid arthritis Monitor Chronic High Risk Meds Rheumatoid arthritis Right wrist tenosynovectomy Monitor Chronic High Risk Meds Rheumatoid arthritis Tenosynovitis right wrist Rheumatoid nodules Foot deformities Drug monitoring Rheumatoid arthritis Right wrist pain Monitor Chronic High Risk Meds Rheumatoid arthritis Monitor Chronic High Risk Meds Rheumatoid arthritis Monitor Chronic High Risk Meds Hammer toes Rheumatoid arthritis Monitor Chronic High Risk Meds Rheumatoid arthritis Monitor Chronic High Risk Meds Rheumatoid arthritis Monitor Chronic High Risk Meds Rheumatoid arthritis Monitor Chronic High Risk Meds Functional Status Date Functional Assessmen t No Information Instructions Date Instruction Additional Infor mation The patient will con tinue the current medical regimen without change. Related to Rheumatoid Arthritis Alma will have drug monitoring labs again in [place] in November. Related to Therapeutic Drug Monitoring Assessments Type Assessment Date No Information Patient Care Teams Name Effective Dates (start - stop) Status Members No Information
[2023-10-09 11:53] VITALS: BP 130/94; PULSE 89; RESP 18; TEMP 36.7; O2SAT 98; BMI 26.6
[2023-10-09 12:10] VITALS: RESP 18; O2SAT 98
[2023-10-09] MEDS: ERTAPENEM 1 GM in 0.9 % SODIUM CHLORIDE Mini-bag 100 ML IVPB (13:06)
[2023-10-09 13:33] LABS: Chloride* 104 mmol/L (96-114)
[2023-10-09 13:34] LABS: Potassium* 4.4 mmol/L (3.6-5.1); Sodium* 139 mmol/L (135-149)
[2023-10-09 13:36] LABS: Creatinine* 0.6 mg/dL (0.5-1.5); Est. Creatinine Clearance* 95.68; Estimated Glomerular Filt Rate 104 ml/min
[2023-10-09 13:37] LABS: Anion Gap 3 mEq/L (7-15); Blood Urea Nitrogen* 9 mg/dL (7-30); Calcium* 9.2 mg/dL (8.4-10.6); Carbon Dioxide* 32 mmol/L (20-32); Glucose* 98 mg/dL (60-115)
--- NOTE | 2023-10-09 13:38 | P.GSCN_ITS ---
History of Present Illness Consult details Date Seen: 10/09/23 Consult date: 10/09/23 Narrative: The patient is a 58-year-old female who presented in follow-up to clinic today for recent diagnosis of urinary tract infection and was found to have perforated diverticulitis. She states that her symptoms began with dysuria last Saturday or 5 days ago. The following day she developed abdominal pain in the suprapubic region. On Saturday, she had a telemedicine visit. She was concerned it could be related to kidney stones because she had had this previously. She was diagnosed with a urinary tract infection and was started on antibiotics. Culture grew pansensitive E coli. However, she states that her symptoms did not get better despite the antibiotics. She came back for follow-up visit today and again because of her history of kidney stones, a CT scan was obtained. This showed that she had sigmoid diverticulitis with perforation and 2.9 cm phlegmon versus abscess. She has been having bowel movements, however they have been small and soft. She denies nausea but her appetite has been decreased. Her urinary symptoms have improved. At rest her pain is minimal, however she does have pain with ambulation. She did have abdominal discomfort this afternoon when she drink grape juice. Otherwise liquids have been going okay. She states that she may have had symptoms like this before but never this severe. They have always gone away on their own. She states that she has had a colonoscopy 10 years ago but is again due. She underwent fecal testing 2 years ago which was normal. She normally has bowel movements every other day. They are what sounds like somewhat firm. Her grandfather had colon cancer. Her father had pancreatic cancer. She does take tocilizumab for rheumatoid arthritis. Her last dose was last week. She takes this weekly. [facility] Medical History (Updated 10/09/23 @ 17:33 by Delmi Gil MD) Immunocompromised patient ?D84.9 - Immunodeficiency, unspecified (ICD-10) Perforation of sigmoid colon due to diverticulitis ?K57.20 - Diverticulitis of large intestine with perforation and abscess without bleeding (ICD-10) Rheumatoid arthritis (05/01/11) ?M06.9 - Rheumatoid arthritis, unspecified (ICD-10) Kidney stones (05/01/11) ?N20.0 - Calculus of kidney (ICD-10) Anxiety state, unspecified (06/10/08) ?F41.1 - Generalized anxiety disorder (ICD-10) Surgical History (Updated 10/09/23 @ 15:41 by Júnior Barroso MD) History of removal of cyst ?Z98.890 - Other specified postprocedural states (ICD-10) History of cholecystectomy ?Z90.49 - Acquired absence of other specified parts of digestive tract (ICD- 10) History of appendectomy ?Z90.49 - Acquired absence of other specified parts of digestive tract (ICD- 10) Family History (Updated 10/09/23 @ 18:23 by Delmi Gil MD) Father Pancreatic cancer High blood pressure Brother High blood pressure Grandfather Colon cancer Social History (Updated 10/09/23 @ 15:43 by Júnior Barroso MD) Narrative: She lives in [place] with her , Eddie. 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 He is healthcare power of corporate attorney. Code status is full. She does not smoke. She previously drank 1 or 2 glasses of wine per day but says she has been drinking last in the last few weeks. What is your current living situation?: I presently have a place to live Problems where you live: no known problems Problems where you live details: na In the past 12 months, utilities in danger of being shut off: no In past 12 months, lack of transportation kept you from medical appts, meetings, work, or getting things needed for daily living: no In the past 12 mos, have been you worried that your food would run out before you had money to buy more?: never true In the past 12 mos, the food you bought just didn't last and you didn't have money to buy more?: never true Highest level of school completed/degree received: Master's degree Smoking Status: Never smoker How often do you have a drink containing alcohol: 4 or more times a week Alcohol type: wine How many standard drinks containing alcohol do you have on a typical day: 1 or 2 How often do you have six or more drinks on one occasion: Never AUDIT-C Alcohol total score: 4 Caffeine: Yes (2 pops a day) How often does anyone, including family, friends and others, physically hurt you : never How often does anyone, including family, friends and others, insult or talk down to you: never How often does anyone, including family, friends and others, threaten you with harm: never How often does anyone, including family, friends and others, scream or curse at you: never service: No Meds Home Medications and Allergies Home Medications ?Medication ?Instructions ?Recorded ?Confirmed ?Type cetirizine 10 mg tablet 10 mg PO DAILY 10/09/23 10/09/23 History folic acid 1 mg tablet 1 mg PO DAILY 10/09/23 10/09/23 History lorazepam 0.5 mg tablet 0.5 mg PO BID PRN anxiety 10/09/23 10/09/23 History methotrexate sodium 2.5 mg tablet 20 mg PO QWEEK 10/09/23 10/09/23 History tocilizumab 162 mg/0.9 mL mg subcut 10/09/23 History subcutaneous pen injector (Actemra ACTPen) Exam Narrative: Exam Narrative: General appearance: Alert, cooperative, and in no distress Eyes: PERRLA, eye lids clear, and sclera white HENT Head: Normocephalic Pulmonary: Breathing nonlabored on room air Cardiovascular Heart: Regular rate Extremities: warm and well perfused Gastrointestinal Abdominal: Scars consistent with surgical history. Abdomen is nondistended. She is mildly tender in the suprapubic region. No guarding or rebound. Musculoskeletal: Extremities: Upper: Both upper extremities have normal joint range of motion and intact strength. Lower: Both lower extremities have normal joint range of motion and intact strength. Skin: Normal skin color, texture, and turgor. Neurologic: No focal deficits Psychiatric: Alert, oriented, cooperative, normal affect. Const: Vital Signs, click to edit/add: Vital Signs - 24 hr 10/09/23 11:53 10/09/23 12:10 Temperature 98.0 F Pulse Rate [Right Radial] 89 Respiratory Rate 18 18 Blood Pressure [Ri ght Arm] 130/94 H Pulse Oximetry 98 98 Oxygen Delivery Me thod Room Air Room Air Results Labs Labs: Abnormal lab results 10/09/23 Range/Units 12:50 Anion Gap 3 L (7-15) mEq/L Diabetes panel 10/09/23 Range/Units 12:50 Sodium 139 (135-149) mmol/L Potassium 4.4 (3.6-5.1) mmol/L Chloride 104 (96-114) mmol/L Carbon Dioxide 32 (20-32) mmol/L BUN 9 (7-30) mg/dL Creatinine 0.6 (0.5-1.5) mg/dL Glucose 98 (60-115) mg/dL Calcium 9.2 (8.4-10.6) mg/dL Calcium panel 10/09/23 Range/Units 12:50 Calcium 9.2 (8.4-10.6) mg/dL Pituitary panel 10/09/23 Range/Units 12:50 Sodium 139 (135-149) mmol/L Potassium 4.4 (3.6-5.1) mmol/L Chloride 104 (96-114) mmol/L Carbon Dioxide 32 (20-32) mmol/L BUN 9 (7-30) mg/dL Creatinine 0.6 (0.5-1.5) mg/dL Glucose 98 (60-115) mg/dL Calcium 9.2 (8.4-10.6) mg/dL Adrenal panel 10/09/23 Range/Units 12:50 Sodium 139 (135-149) mmol/L Potassium 4.4 (3.6-5.1) mmol/L Chloride 104 (96-114) mmol/L Carbon Dioxide 32 (20-32) mmol/L BUN 9 (7-30) mg/dL Creatinine 0.6 (0.5-1.5) mg/dL Glucose 98 (60-115) mg/dL Calcium 9.2 (8.4-10.6) mg/dL At [facility], UA today was negative. White blood cell count was normal at 9.5. CRP was 0.9. Lactate 1.[address] scan report/results: report reviewed and image reviewed Additional studies: INDICATION: Pelvic pain, complicated urinary tract infection, history of nephrolithiasis COMPARISON: 08/23/2021 TECHNIQUE: CT of the abdomen and pelvis without intravenous contrast. Multiplanar reformats are included. Contrast: None FINDINGS: Lung bases: Normal. Liver: Normal. No mass. Gallbladder and bile ducts: Cholecystectomy. Pancreas: Normal. Spleen: Normal. Adrenal glands: Normal. Kidneys: Normal renal size and position. No perinephric stranding. No cyst or solid mass. Multiple bilateral nonobstructing renal calculi measuring up to 3-4 millimeters. Mild bilateral pelviectasis and ureterectasis. No ureteral calculi seen. Urinary bladder: Normal. Vessels: Few scattered atherosclerotic vascular calcifications. Pelvis: No cyst or mass. Bowel: Sigmoid diverticulitis. There is a short segment of sigmoid and Marguerite diverticular thickening. There is significant adjacent edema and a small amount of fluid and extraluminal air. The area of phlegmonous change with extraluminal air measures about 1.6 x 2.9 x 2.2 centimeters and is located deep within the central pelvis. Moderate stool burden. Appendectomy. No dilated or inflamed appearing small bowel. Lymph nodes: Mildly prominent mesenteric lymph nodes appear to be reactive. No worrisome adenopathy. Peritoneum: No ascites. No free air. Bones: No fractures. No focal worrisome bone lesions. Abdominal wall: No hernia. IMPRESSION: 1. Perforated sigmoid diverticulitis with a 2.9 centimeter adjacent abscess versus phlegmon. This is located deep in the central pelvis and is unlikely to be accessible percutaneously. 2. Bilateral nephrolithiasis. Progress Note:A&P Assessment and plan (1) Perforation of sigmoid colon due to diverticulitis: Status: Acute (2) Rheumatoid arthritis: Status: Acute (3) Immunocompromised patient: Status: Acute Plan The patient is a 58-year-old female with perforated diverticulitis in the setting of immunocompromise from immuno modulating agents for rheumatoid arthritis. Currently she appears nontoxic. I had a lengthy discussion with the patient and her about diverticulitis and the management. We discussed various narrow such as indication for emergency operation. We discussed the risk of recurrence if she recovers from this episode. The study showed that in uncomplicated diverticulitis patients with immune compromise and patients who are immunocompetent have similar recurrence rates, however patient's with immune compromise tend to present with more severe episodes. The overall risk of emergency surgery requiring stoma is still low. -recommend bowel rest and IV antibiotics. Recheck labs in the morning. -patient will likely need outpatient antibiotics for 7-10 days. -I recommend that the patient hold her tocilizumab this weekend next until she has recovered. -when she has recovered I would recommend colonoscopy in 6 weeks. -at this point we can discuss whether not she would want to proceed with elective colon resection. -if she were to develop complications from diverticulitis such as larger or worsening abscess, smoldering diverticulitis, C difficile infection from antibiotic treatment or acutely peritonitis, then she understands that she would need to have surgery either emergently or more urgently depending on the clinical scenario. She and her asked excellent questions and they are agreeable with the plan. We will re-evaluate the patient in the morning.
--- NOTE | 2023-10-09 15:34 | P.IMHP_ITS ---
Hospitalist- H&P: HPI History of Present Illness Date Seen: 10/09/23 Chief complaint: Observation Narrative: Jennie Paul is a 58 year old female with history of kidney stones and rheumatoid arthritis admitted from the clinic today for diverticulitis. Patient 1st became ill last Robin, 5 days ago with dysuria. She was seen by telemedicine for UTI and prescribed Keflex. Three days ago she started having increasing abdominal pain and went to urgent care. At that time her urinalysis had improved. Urine culture showed pansensitive E coli. Today she fell worse with increasing abdominal pain with any activity and decreased appetite. She has had small formed stools. No blood in her stool. She has been able to eat and drink. Has had no nausea or vomiting. No fever. She went to clinic today where she was seen and had a CT scan which showed perforated sigmoid divertic ulitis with a 2.9 cm abscess versus phlegmon. She has not had any previous history of problems with her bowels, inflammatory bowel disease, bleeding, diarrhea. She had a colonoscopy done around 10 years ago. Three years ago she had a immune fecal occult blood test which was normal. Paternal grandfather with colon cancer. No other family history of colon cancer. Father had pancreatic cancer. Review of Systems Narrative: She has been feeling fine prior to last few days. No other significant concer ns. [facility] Medical History (Updated 10/09/23 @ 15:45 by Júnior Barroso MD) Perforation of sigmoid colon due to diverticulitis ?K57.20 - Diverticulitis of large intestine with perforation and abscess without bleeding (ICD-10) Rheumatoid arthritis (05/01/11) ?M06.9 - Rheumatoid arthritis, unspecified (ICD-10) Kidney stones (05/01/11) ?N20.0 - Calculus of kidney (ICD-10) Anxiety state, unspecified (06/10/08) ?F41.1 - Generalized anxiety disorder (ICD-10) Surgical History (Updated 10/09/23 @ 15:41 by Júnior Barroso MD) History of removal of cyst ?Z98.890 - Other specified postprocedural states (ICD-10) History of cholecystectomy ?Z90.49 - Acquired absence of other specified parts of digestive tract (ICD- 10) History of appendectomy ?Z90.49 - Acquired absence of other specified parts of digestive tract (ICD- 10) Family History (Updated 10/09/23 @ 15:42 by Júnior Barroso MD) Father Pancreatic cancer High blood pressure Brother High blood pressure Social History (Updated 10/09/23 @ 15:43 by Júnior Barroso MD) Narrative: She lives in [place] with her , Eddie. He is healthcare power of residential sales. Code status is full. She does not smoke. She previously drank 1 or 2 glasses of wine per day but says she has been drinking last in the last few weeks. What is your current living situation?: I presently have a place to live Problems where you live: no known problems Problems where you live details: na In the past 12 months, utilities in danger of being shut off: no In past 12 months, lack of transportation kept you from medical appts, meetings, work, or getting things needed for daily living: no In the past 12 mos, have been you worried that your food would run out before you had money to buy more?: never true In the past 12 mos, the food you bought just didn't last and you didn't have money to buy more?: never true Highest level of school completed/degree received: Master's degree Smoking Status: Never smoker How often do you have a drink containing alcohol: 4 or more times a week Alcohol type: wine How many standard drinks containing alcohol do you have on a typical day: 1 or 2 How often do you have six or more drinks on one occasion: Never AUDIT-C Alcohol total score: 4 Caffeine: Yes (2 pops a day) How often does anyone, including family, friends and others, physically hurt you : never How often does anyone, including family, friends and others, insult or talk down to you: never How often does anyone, including family, friends and others, threaten you with harm: never How often does anyone, including family, friends and others, scream or curse at you: never service: No Meds Home Medications and Allergies Home Medications ?Medication ?Instructions ?Recorded ?Confirmed ?Type cetirizine 10 mg tablet 10 mg PO DAILY 10/09/23 10/09/23 History folic acid 1 mg tablet 1 mg PO DAILY 10/09/23 10/09/23 History lorazepam 0.5 mg tablet 0.5 mg PO BID PRN anxiety 10/09/23 10/09/23 History methotrexate sodium 2.5 mg tablet 20 mg PO QWEEK 10/09/23 10/09/23 History tocilizumab 162 mg/0.9 mL mg subcut 10/09/23 History subcutaneous pen injector (Actemra ACTPen) Home Medication Comments: She has been on Keflex for the last 3 days. She is not currently taking cetirizine, folic acid or melatonin. She only takes methotrexate about once a month because it upsets her stomach. Exam Narrative: Exam Narrative: She is alert and appears in no distress. Eyes are normal. Oropharynx normal. Neck is supple without mass or adenopathy. Respirations are clear to auscultation. Cardiovascular: S1, S2, regular rate and rhythm. No murmur gallop or rub. Abdomen: Bowel sounds active. Abdomen is soft. She has mild suprapubic tenderness. Did not palpate a mass. No peritonitis. External genitalia normal. Extremities normal. No edema. Intact pulses. Const: Vital Signs, click to edit/add: Vital Signs - 24 hr 10/09/23 11:53 10/09/23 12:10 Temperature 98.0 F Pulse Rate [Right Radial] 89 Respiratory Rate 18 18 Blood Pressure [Ri ght Arm] 130/94 H Pulse Oximetry 98 98 Oxygen Delivery Me thod Room Air Room Air Documenting provider has reviewed patient's vital signs: yes Hospitalist - H&P: Result Labs Labs: [facility] 10/09/23 12:50 Sodium 139 Potassium 4.4 Chloride 104 Carbon Dioxide 32 BUN 9 Creatinine 0.6 Glucose 98 Calcium 9.2 Assessment and Plan Assessment and plan (1) Perforation of sigmoid colon due to diverticulitis: Status: Acute Plan Patient is admitted to the hospital for IV antibiotics and surgical consultation. Per Radiology this area of abscess/phlegmon is likely not assessable from percutaneous approach. Will plan IV antibiotics in the hospital and transition to outpatient IV antibiotics when clinically improving. Will need surgical intervention if clinically getting worse. Consult surgery. Outpatient colonoscopy when better. Total Time Spent Total Time Spent: Total time spent today is 80 minutes, 50 minutes in coordination of care discussing with patient and other providers ongoing evaluation management of perforated diverticulitis.
[2023-10-09 15:35] VITALS: BP 142/87; PULSE 82; RESP 18; TEMP 36.4; O2SAT 93
[2023-10-09 16:47] LABS: C Reactive Protein* 0.9 mg/dL (0.5-1.0)
[2023-10-09] MEDS: ACETAMINOPHEN 325 MG TABLET 650 MG PO (17:06)
--- NOTE | 2023-10-09 17:44 | PC.NURSE ---
end of shift. pt was admitted direct from [facility] with dieretic and abscess . she is alert x4. and very pleasant. ESTRADA and abd pain 3/10 and she got po Tylenol. she is on clears. she is eating, drinking and voiding. SL is patent. she got IV antibotics. she is up ab ellie. will monitor.
[2023-10-09 19:00] VITALS: BP 134/75; PULSE 82; RESP 18; TEMP 36.4; O2SAT 97
[2023-10-09] MEDS: SODIUM CHLORIDE 0.9 % (FLUSH) 10 ML SYRINGE 5 ML IVF (21:20)
[2023-10-09 22:55] VITALS: BP 142/91; PULSE 71; RESP 18; TEMP 36.1; O2SAT 97
[2023-10-10] MEDS: LORazepam 0.5 MG TABLET PO (02:47)
[2023-10-10 02:50] VITALS: BP 139/89; PULSE 67; RESP 18; TEMP 36.1; O2SAT 95
--- NOTE | 2023-10-10 06:03 | PC.NURSE ---
Patient pleasant, alert and oriented. Independent in room with ambulation. Declined scheduled Enoxaparin at HS. Patient educated on use. May take tomorrow night if still here but does not wish to take it tonight. At times reported pain in her abdomen?rated 2-3/10. Patient had?a tearful episode during night. Reported feelings of worry about what they will find medically in the coming days. Given PRN lorazepam and an aromatherapy patch.?
[2023-10-10 07:33] LABS: Basophils Absolute Auto 0.03 K/uL (0.00-0.30); Basophils Percent Auto 0.6 % (0.0-3.0); Eosinophils Absolute Auto 0.16 K/uL (0.00-0.50); Hematocrit 41.2 % (33.0-51.0); Hemoglobin* 13.9 gm/dL (12.0-16.0); Immature Granulocytes Abs Auto 0.02 K/uL (0.00-0.30); Immature Granulocytes Pct Auto 0.4 %; Lymphocytes Percent Auto 18.3 % (20-44); Mean Corpuscular HGB Conc 34 gm/dL (32-36); Mean Corpuscular Hemoglobin 31 pg (26-34); Mean Corpuscular Volume 93 fL (80-100); Monocytes Percent Auto 10.9 % (0.0-11.0); Neutrophils Absolute Auto 3.61 K/uL (1.7-7.0); Neutrophils Percent Auto 66.8 % (42.0-72.0); Platelet Count* 171 K/uL (140-440); RDW Coefficient of Variation % 12.6 % (11.5-15.5); Red Blood Count 4.45 m/uL (4.00-5.20)
[2023-10-10 07:41] LABS: Slide Review Reflex No
[2023-10-10 07:43] LABS: Chloride* 104 mmol/L (96-114)
[2023-10-10 07:44] LABS: Potassium* 4.1 mmol/L (3.6-5.1); Sodium* 137 mmol/L (135-149)
[2023-10-10 07:47] LABS: Anion Gap 5 mEq/L (7-15); Blood Urea Nitrogen* 8 mg/dL (7-30); Calcium* 8.8 mg/dL (8.4-10.6); Carbon Dioxide* 28 mmol/L (20-32); Creatinine* 0.5 mg/dL (0.5-1.5); Est. Creatinine Clearance* 114.81; Estimated Glomerular Filt Rate 109 ml/min; Glucose* 94 mg/dL (60-115)
[2023-10-10 08:00] VITALS: BP 123/87; PULSE 70; RESP 16; TEMP 36.2; O2SAT 94
--- NOTE | 2023-10-10 12:11 | P.GSPN_ITS ---
Subjective Subjective Date Seen: 10/10/23 Interval history: Maura feels better today. She tolerated clears without difficulty yesterday. She states that yesterday she had had less pain with walking. Today she feels less pressure. She has been afebrile. Exam Narrative: Exam Narrative: General: No acute distress Abdomen: Soft. Minimal tenderness in the suprapubic area. Const: Vital Signs, click to edit/add: Vital Signs - 24 hr 10/09/23 15:35 10/09/23 15:35 10/09/23 19:00 Temperature 97.6 F 97.5 F L Pulse Rate [Pulse Oximeter] 82 Pulse Rate [Right Radial] 82 82 Respiratory Rate 18 18 18 Blood Pressure [Le ft Arm] Blood Pressure [Ri ght Arm] 142/87 H 134/75 Pulse Oximetry 93 97 Oxygen Delivery Me thod Room Air Room Air 10/09/23 22:55 10/10/23 02:50 10/10/23 08:00 Temperature 97.0 F L 97.0 F L 97.1 F L Pulse Rate [Pulse Oximeter] 71 67 70 Pulse Rate [Right Radial] Respiratory Rate 18 18 16 Blood Pressure [Le ft Arm] 142/91 H 139/89 123/87 Blood Pressure [Ri ght Arm] Pulse Oximetry 97 95 94 Oxygen Delivery Me thod Room Air Room Air Room Air 10/10/23 08:00 Temperature Pulse Rate [Pulse Oximeter] 70 Pulse Rate [Right Radial] Respiratory Rate 16 Blood Pressure [Le ft Arm] Blood Pressure [Ri ght Arm] Pulse Oximetry Oxygen Delivery Me thod Labs/Imaging Labs Labs: White blood cell count remains normal Progress Note:A&P Assessment and plan (1) Immunocompromised patient: Status: Acute (2) Perforation of sigmoid colon due to diverticulitis: Status: Acute (3) Rheumatoid arthritis: Status: Acute Plan The patient is a 58-year-old female with perforated sigmoid diverticulitis. She is doing well today. She seems to be clinically improved. The patient was seen today with her and also a discussion was had with Dr. Barroso. Because she has not had a fever, elevated CRP are white blood cell count, the best way to assess her clinical response will be pain. Since her pain has improved she likely also continues to improve. I did recommend that she hold her immuno modulating agent until she can discuss with her wad impregnator. She states that she did let her wad impregnator know and she wants her to hold indefinitely for now until she has recovered. -she can advance to a soft diet today as long as she does not have worsening pain -I would continue IV antibiotics for an additional day inpatient and if she is improved then she will need at least 10 days of IV antibiotics total as an outpatient. -placement of PICC line versus IV for outpatient antibiotics will be per patient's preference. -she can follow-up in clinic next week once she is discharged
[2023-10-10 12:12] VITALS: BP 121/88; PULSE 71; RESP 16; TEMP 36.3; O2SAT 95
[2023-10-10] MEDS: ERTAPENEM 1 GM in 0.9 % SODIUM CHLORIDE Mini-bag 100 ML IVPB (12:13)
[2023-10-10] MEDS: SODIUM CHLORIDE 0.9 % (FLUSH) 10 ML SYRINGE 5 ML IVF ×2 (12:14→21:14)
--- NOTE | 2023-10-10 13:20 | P.IMPN_ITS ---
Progress Note: A&P Assessment and plan (1) Perforation of sigmoid colon due to diverticulitis: Problem details: Responding well to treatment with ertapenem. Plan will be to discharge her for continued outpatient IV antibiotics for total of 10 days, through next Saturday. Increased risk for recurrence due to the severity of disease on CT scan and possibly also due to tocilizumab. Status: Acute (2) Immunocompromised patient: Problem details: patient on Immunomodulating agents for RA, tocilizumab and methotrexate which she takes less than prescribed. Tocilizumab a is known to cause diverticulitis and her silk screen frame assembler had recommended that she stop taking it for now. Status: Acute (3) Rheumatoid arthritis: Problem details: Temporarily hold tocilizumab. Follow-up with silk screen frame assembler before resuming. Status: Acute Plan Continue in hospital for 1 more day. Advance diet. If pain continues to be improving than discharge for outpatient IV antibiotics through next Saturday. Outpatient follow-up with Rheumatology and General surgery. Outpatient colonoscopy when completely recovered in about 6 weeks Time Spent With Patient Total time spent: 40 minutes discussing with patient, her and other providers ongoing evaluation and management of diverticulitis and rheumatoid arthritis Subjective Date Seen: 10/10/23 Interval history: Jennie Paul is a 58 year old female with history of kidney stones and rheumatoid arthritis admitted from the clinic today for diverticulitis. Patient 1st became ill last Saturday, 5 days ago with dysuria. She was seen by telemedicine for UTI and prescribed Keflex. Three days ago she started having increasing abdominal pain and went to urgent care. At that time her urinalysis had improved. Urine culture showed pansensitive E coli. Today she fell worse with increasing abdominal pain with any activity and decreased appetite. She has had small formed stools. No blood in her stool. She has been able to eat and drink. Has had no nausea or vomiting. No fever. She went to clinic today where she was seen and had a CT scan which showed perforated sigmoid diverticulitis with a 2.9 cm abscess versus phlegmon. October 09: Overnight patient reports feeling better. The pain that she had with activity is much better. She has tolerated clear liquid diet well. No fever. Exam Narrative: Exam Narrative: She is alert and appears in no distress. Abdomen: Bowel sounds active. Abdomen is soft without tenderness or mass. Const: Vital Signs, click to edit/add: Vital Signs - 24 hr 10/09/23 15:35 10/09/23 15:35 10/09/23 19:00 Temperature 97.6 F 97.5 F L Pulse Rate [Pulse Oximeter] 82 Pulse Rate [Right Radial] 82 82 Respiratory Rate 18 18 18 Blood Pressure [Le ft Arm] Blood Pressure [Ri ght Arm] 142/87 H 134/75 Pulse Oximetry 93 97 Oxygen Delivery Me thod Room Air Room Air 10/09/23 22:55 10/10/23 02:50 10/10/23 08:00 Temperature 97.0 F L 97.0 F L 97.1 F L Pulse Rate [Pulse Oximeter] 71 67 70 Pulse Rate [Right Radial] Respiratory Rate 18 18 16 Blood Pressure [Le ft Arm] 142/91 H 139/89 123/87 Blood Pressure [Ri ght Arm] Pulse Oximetry 97 95 94 Oxygen Delivery Me thod Room Air Room Air Room Air 10/10/23 08:00 10/10/23 12:12 Temperature 97.3 F L Pulse Rate [Pulse Oximeter] 70 71 Pulse Rate [Right Radial] Respiratory Rate 16 16 Blood Pressure [Le ft Arm] 121/88 Blood Pressure [Ri ght Arm] Pulse Oximetry 95 Oxygen Delivery Me thod Room Air Documenting provider has reviewed patient's vital signs: yes Labs Labs: Laboratory Results - last 24 hr 10/09/23 10/10/23 12:50 06:18 WBC 5.40 RBC 4.45 Hgb 13.9 Hct 41.2 MCV 93 MCH 31 MCHC 34 RDW Coeff of Cammie 12.6 Plt Count 171 Neut % (Auto) 66.8 Lymph % (Auto) 18.3 L [place] % (Auto) 10.9 Eos % (Auto) 3.0 Baso % (Auto) 0.6 Neut # (Auto) 3.61 Lymph # (Auto) 1.00 [place] # (Auto) 0.60 Eos # (Auto) 0.16 Baso # (Auto) 0.03 Abs Immat Gran (auto) 0.02 Imm/Tot Granulo (auto) 0.4 Sodium 139 137 Potassium 4.4 4.1 Chloride 104 104 Carbon Dioxide 32 28 Anion Gap 3 L 5 L BUN 9 8 Creatinine 0.6 0.5 Estimated Creat Clear 95.68 114.81 Estimated GFR 104 109 Glucose 98 94 Calcium 9.2 8.8 C-Reactive Protein 0.9
[2023-10-10 15:15] VITALS: BP 124/84; PULSE 80; RESP 18; TEMP 36.5; O2SAT 93
--- NOTE | 2023-10-10 18:56 | PC.NURSE ---
end of shift. pt is very pleasant. she is up ab ellie. abd pain 2-3 and ESTRADA. she is getting IV antibiotics for Diverticulitis and abscess . she is on a regular bland diet. . she is eating, drinking and voiding. SL is patent.
[2023-10-10 19:31] VITALS: BP 130/84; PULSE 73; RESP 16; O2SAT 96
[2023-10-10 23:03] VITALS: BP 121/87; PULSE 81; RESP 18; TEMP 36.4; O2SAT 95
[2023-10-11 02:38] VITALS: BP 121/79; PULSE 74; RESP 16; TEMP 36.3; O2SAT 93
[2023-10-11] MEDS: ACETAMINOPHEN 325 MG TABLET 650 MG PO (05:55)
--- NOTE | 2023-10-11 06:31 | PC.NURSE ---
End of shift [id number]: A&O pleasant and cooperative. VSS. Reports a ?dull discomfort? in abdomen. Pt reports this is tolerable. Denies n/v. Using call light appropriately.?
[2023-10-11 06:32] LABS: Basophils Absolute Auto 0.03 K/uL (0.00-0.30); Basophils Percent Auto 0.6 % (0.0-3.0); Eosinophils Absolute Auto 0.21 K/uL (0.00-0.50); Eosinophils Percent Auto 3.9 % (0.0-7.0); Hematocrit 42.3 % (33.0-51.0); Immature Granulocytes Abs Auto 0.03 K/uL (0.00-0.30); Immature Granulocytes Pct Auto 0.6 %; Lymphocytes Absolute Auto 1.35 K/uL (0.90-2.90); Lymphocytes Percent Auto 24.8 % (20-44); Mean Corpuscular HGB Conc 33 gm/dL (32-36); Mean Corpuscular Hemoglobin 31 pg (26-34); Mean Corpuscular Volume 93 fL (80-100); Monocytes Percent Auto 11.9 % (0.0-11.0); Neutrophils Absolute Auto 3.18 K/uL (1.7-7.0); Neutrophils Percent Auto 58.2 % (42.0-72.0); Platelet Count* 181 K/uL (140-440); RDW Coefficient of Variation % 12.4 % (11.5-15.5); Red Blood Count 4.55 m/uL (4.00-5.20); Slide Review Reflex No; White Blood Count* 5.45 K/uL (4.50-11.00)
[2023-10-11 06:45] LABS: Chloride* 105 mmol/L (96-114)
[2023-10-11 06:46] LABS: Potassium* 4.2 mmol/L (3.6-5.1); Sodium* 138 mmol/L (135-149)
[2023-10-11 06:48] LABS: Creatinine* 0.6 mg/dL (0.5-1.5); Est. Creatinine Clearance* 95.68; Estimated Glomerular Filt Rate 104 ml/min
[2023-10-11 06:49] LABS: Anion Gap 2 mEq/L (7-15); Blood Urea Nitrogen* 10 mg/dL (7-30); Calcium* 8.8 mg/dL (8.4-10.6); Carbon Dioxide* 31 mmol/L (20-32); Glucose* 101 mg/dL (60-115)
[2023-10-11 07:36] VITALS: BP 127/88; PULSE 68; RESP 14; TEMP 36.4; O2SAT 92
[2023-10-11] MEDS: SODIUM CHLORIDE 0.9 % (FLUSH) 10 ML SYRINGE 5 ML IVF (08:45)
[2023-10-11] MEDS: ERTAPENEM 1 GM in 0.9 % SODIUM CHLORIDE Mini-bag 100 ML IVPB (08:46)
--- NOTE | 2023-10-11 10:02 | NUTR.NU ---
RDN with verbal MD order for diet education related to new diagnosis with diverticulitis with perforation of sigmoid. Patient admitted for perforation of sigmoid colon due to diverticulitis. Current weight 164 lb 4 oz; height 5ft 6in; BMI 26.5 kg/m2. Current diet is regular. Has tolerated a regular diet yesterday. RDN visited with patient whom agreed to receive diet education. Patient was provided diet education on a low fiber diet. Discussed foods to include and foods to avoid until MD recommends advancing to high fiber diet. Education also provided on gradually increasing fiber and following a high fiber diet (25-35 grams/day) long-term. Verbal and written information as well as sample menus provided on both diets from [facility]. Patient verbalized understanding. RDN's contact information was provided and patient was encouraged to contact RDN with questions.
--- NOTE | 2023-10-11 10:10 | P.DS_ITS ---
DS: Providers Provider Date Seen: 10/11/23 Date of admission: 10/09/23 12:32 Primary care physician: Not a Local Provider Admitting Clinician: Júnior Barroso MD Consults: 10/09/23 12:32 Consult to Physician [CONS] Urgent Comment: Consulting Provider: Delmi Gil Has provider been notified: Yes Attending Physician on discharge: Bri Lo MD Date of Discharge: 10/11/23 DS: Diagnosis Discharge Diagnosis (1) Perforation of sigmoid colon due to diverticulitis: Status: Acute Problem details: - noted on admission CT scan - improved objectively and subjectively on IV ertapenem; will continue for a total of 10 days upon discharge (once per day IV therapy as an outpatient) - will see General surgery next week in follow-up, will also discuss scheduling outpatient colonoscopy at that time (2) Immunocompromised patient: Status: Acute Problem details: - Painting Machine Operator is Dr. Elva Holly at [facility] in [place] ([phone]) - on Tocilizumab and Methotrexate as an outpatient - patient exchanged medical messages with Rheumatology team, will be stopping Tocilizumab at this time, restarting Methotrexate when infection has cleared (anticipate restarting the week of October 20) (3) Rheumatoid arthritis: Status: Acute Problem details: - Painting Machine Operator is Dr. Elva Holly at [facility] in [place] ([phone]) DS: Summary Hospital Course Hospital Course: Jennie is a 58-year-old female with a known history of rheumatoid arthritis who presented to the hospital on 10/08 after being seen in the clinic for abdominal pain. Imaging revealed a perforated sigmoid diverticulitis with a 2.9 cm abscess versus phlegmon. Treated with IV ertapenem, objectively and subjectively improved. Medical history includes rheumatoid arthritis, details above. She is holding her Tocilizumab at this time, will restart methotrexate when infection has resolved. Patient's handicrafts teacher is aware of hospitalization. Medically appropriate for discharge home on 10/10, with outpatient IV ertapenem daily to complete 10 day course of antibiotic therapy. She will see Dr. Gil of general surgery next week for follow-up. Status at Discharge Functional status at discharge: independent ambulation Overall status at discharge: patient is progressing back to baseline Time Spent with Patient Time attestation: Total time spent providing and/or coordinating discharge services: Time spent: Greater than 30 minutes Specific discharge activities: Education, collaboration with General Surgery, medication reconciliation upon d/c Exam Narrative: Exam Narrative: GEN: Alert and oriented, ambulating independently HEENT: EOMIs bilaterally, no scleral icterus R: No tachypnea, breathing comfortably Ab: borborygmi Ext: No concerning edema Skin: No concerning skin lesions or rashes on exposed skin Neuro: Nonfocal Psych: Appropriate Const: Vital Signs, click to edit/add: Vital Signs - 24 hr 10/10/23 12:12 10/10/23 15:15 10/10/23 15:15 Temperature 97.3 F L 97.7 F Pulse Rate [Pulse Oximeter] 71 80 80 Respiratory Rate 16 18 18 Blood Pressure [Le ft Arm] 121/88 124/84 Pulse Oximetry 95 93 Oxygen Delivery Me thod Room Air Room Air 10/10/23 19:31 10/10/23 23:03 10/11/23 02:38 Temperature 97.6 F 97.3 F L Pulse Rate [Pulse Oximeter] 73 81 74 Respiratory Rate 16 18 16 Blood Pressure [Le ft Arm] 130/84 121/87 121/79 Pulse Oximetry 96 95 93 Oxygen Delivery Me thod Room Air Room Air Room Air 10/11/23 07:36 10/11/23 07:36 Temperature 97.6 F Pulse Rate [Pulse Oximeter] 68 68 Respiratory Rate 14 14 Blood Pressure [Le ft Arm] 127/88 Pulse Oximetry 92 Oxygen Delivery Me thod Room Air DS: Data Data Completed and Pending Labs on day of discharge: Labs from last 24 hours 10/11/23 06:18 WBC 5.45 RBC 4.55 Hgb 14.0 Hct 42.3 MCV 93 MCH 31 MCHC 33 RDW Coeff of Cammie 12.4 Plt Count 181 Neut % (Auto) 58.2 Lymph % (Auto) 24.8 [place] % (Auto) 11.9 H Eos % (Auto) 3.9 Baso % (Auto) 0.6 Neut # (Auto) 3.18 Lymph # (Auto) 1.35 [place] # (Auto) 0.60 Eos # (Auto) 0.21 Baso # (Auto) 0.03 Abs Immat Gran (auto) 0.03 Imm/Tot Granulo (auto) 0.6 Sodium 138 Potassium 4.2 Chloride 105 Carbon Dioxide 31 Anion Gap 2 L BUN 10 Creatinine 0.6 Estimated Creat Clear 95.68 Estimated GFR 104 Glucose 101 Calcium 8.8 Discharge Plan Discharge Disposition: Home, Self-Care Date of Admission: 10/09/23 12:32 Attending Provider on Discharge: Bri Lo Consulting Providers: Delmi Gil Primary Care Provider: Provider,Not a Local Condition: Improved Anticipated Discharge Date/Time: 10/11/23 10:01 Discharge Medications: New ertapenem 1 gram Recon Soln 1 g IVPB Q24H Qty: 7 0RF Rx Instructions: last dose of IV abx on Saturday, 10/17 Continued lorazepam 0.5 mg tablet 0.5 mg PO BID PRN (Reason: anxiety) folic acid 1 mg tablet 1 mg PO DAILY cetirizine 10 mg tablet 10 mg PO DAILY Held methotrexate sodium 2.5 mg tablet 20 mg PO QWEEK Hold Instructions: Resume on 10/11/23. Hold until completed course of antibiotics and fully cleared. Anticipate October 20 as week of restarting medication. Discontinued Actemra ACTPen 162 mg/0.9 mL pen injector subcut Discharge Orders: Discharge Order (Routine); Ordered 10/11/23 Ordered By: Bri Lo Patient Education: Ertapenem (By injection) Additional Instructions: IV antibiotics until October [address] Gil at [facility] next week Restart Methotrexate the week of October 20 if you're back to normal (no fevers, semi-normal bowel function, etc) Activity Level: Activity as Tolerated Diet Detail: low fiber for 7-10 days, then back to normal Follow Up Appointments: Delmi Gil MD [Staff Physician] - (Needs appt with Dr. Gil at [facility] on October 14 - pl ease make (Jeffery approved appt)) Provider,Not a Local [Primary Care Provider] - Forms: [employer] Info Instructions
--- NOTE | 2023-10-11 11:16 | PC.NURSE ---
Discharge: Patient pleasant and cooperative. Patient vitally stable, lungs clear, BS WNL, IV removed, catheter intact. Patient reports no abdominal pain, but does have headache, tylenol was already given. Patient independent in room. Patient urinating and had 1 BM. Patient does not have an appetite, but tolerating regular diet. Patient signed belongings sheet and discharge form. Patient had no further questions regarding discharge. Patient left the floor by foot to home at 1114.
== END 2023-10-11 11:14 | disposition home or self-care (01) | DRG 391 ==
PROVIDERS: Admitting Provider Family Medicine; Visit Provider Family Medicine
DX: K57.20 Diverticulitis of large intestine with perforation and abscess without bleeding (principal); K65.1 Peritoneal abscess; D84.821 Immunodeficiency due to drugs; M06.9 Rheumatoid arthritis, unspecified; F41.1 Generalized anxiety disorder; Z87.442 Personal history of urinary calculi; Z79.631 Long term (current) use of antimetabolite agent
CPT/HCPCS: 36415; 80048; 83605; 85025; 86140; A9270; J1335

== ENCOUNTER 2023-12-10 09:17 | Outpatient (CLI) | payer OTHER, SELFPAY ==
--- OUTSIDE RECORDS SUMMARY | 2023-12-10 09:21 | XMS_ITS | Clinical Summary ---
Author Organization [employer] [facility] [employer] Address [place], [place] [address] Care Team Providers Care Flight Deck Officer Name Role Phone Ramona Shook MD Unavailable [phone] Cecelia Moulton Primary Care Provider Elva Holly MD Unavailable [phone] Allergies No known active allergies Medications Medication Sig Dispensed Refills Start Date End Date Status IBUPROFEN 200 MG CAP take 600 mg as needed as needed 0 0 11/16/2008 Active cetirizine (ZYRTEC) 10 mg tablet Take 1 tablet by mouth once daily. 0 02/23/2019 Active triamcinolone 0.5% (ARISTOCORT) 0.5 % creamIndications :Bug bite, initial encounter Apply topically to affected area(s) three times daily. 30 g 09/11/2022 Active polyethylene glycol-electroly te (GOLYTELY) 236-22.74-6.74 -5.86 gram suspensionIndica tions:Colon cancer screening Drink 2 liters (1/2 of prep) the day before colonoscopy and drink 2 liters (other 1/2 of prep) 6 hours before colonoscopy appointment. 4000 mL 02/22/2023 Active folic acid 1 mg tabletIndication s:Rheumatoid arthritis of multiple sites with negative rheumatoid factor (HC),High risk medication use TAKE ONE TABLET BY MOUTH ONE TIME DAILY 90 Tablet 05/07/2023 Active methotrexate (RHEUMATREX) 2.5 mg tabletIndication s:Rheumatoid arthritis of multiple sites with negative rheumatoid factor (HC) TAKE 8 TABLETS BY MOUTH ONCE WEEKLY. 96 Tablet 05/07/2023 Active melatonin 1 mg tablet Take 1 mg by mouth at bedtime. Active LORazepam (ATIVAN) 0.5 mg tabIndications:A nxiety TAKE ONE TABLET BY MOUTH TWICE DAILY NEEDED FOR ANXIETY 60 Tablet 11/13/2023 Active LORazepam (ATIVAN) 0.5 mg tabIndications:A nxiety TAKE ONE TABLET BY MOUTH TWICE DAILY NEEDED FOR ANXIETY 60 Tablet 2 05/08/2023 4 Discontinued Active Problems Problem Noted Date Diagnosed Date Pap smear for cervical cancer screening 09/11/19 Overview: 09/2022 NIL/HPV negative Plan: Pap/HPV due in 5 years Vitamin D deficiency 04/12/2014 Kidney stones 05/01/2011 Gestational diabetes 05/01/2011 Rheumatoid arthritis(714.0) 05/01/2011 Contact dermatitis and other eczema, due to unspecified cause 05/01/2011 Anxiety State, Unspecified 06/10/2008 Encounters Date Type Department Care Team Description 12/02/2023 9:10 AM CDT Office Visit [facility] [address] [place] [address] Cecelia Moulton PA Pre-Op Exam (Colonoscopy 12/10/23 [facility]) 12/02/2023 Travel 11/19/2023 Telephone [facility] [address] [place] [address] Cecelia Moulton PA Appointment (COLONOSCOPY) 11/13/2023 Telephone [facility] [address] [place] [address] Cecelia Moulton PA CALL BACK 11/13/2023 Refill [facility] [address] [place] [address] Cecelia Moulton PA Refill Request (Lorazepam) 10/29/2023 4:30 PM CDT Office Visit [facility] [address] [place] [address] Delmi Gil MD Follow Up (diverticulitis) 10/29/2023 Travel 10/24/2023 8:30 AM CDT Ancillary Procedure [facility] [address] [facility] [address] 10/24/2023 Orders Only [facility] [address] [facility] [address] Delmi Gil MD <No scans attached> 10/24/2023 Travel 10/22/2023 10:00 AM CDT Telemedicine [facility] [address] [place] [address] Elav Holly MD 10/15/2023 5:00 PM CDT Office Visit [facility] [address] [facility] [address] Delmi Gil MD Consult (diverticulitis) 10/15/2023 Travel 10/09/2023 10:00 AM CDT Orders Only [facility] [address] [facility] [address] Lab, [facility] 10/09/2023 9:30 AM CDT Ancillary Procedure [facility] [address] [facility] [address] 10/09/2023 8:20 AM CDT Office Visit [facility] [address] [facility] [address] Kaley Farias MD UTI (urgent care 10/05, abdominal pressure/pain lower radiates, frequency) 10/09/2023 Travel 10/08/2023 Nurse Triage [facility] [address] [facility] [address] Cecelia Moulton PA Urinary Tract Infection 10/06/2023 3:00 PM CDT Nurse/Clinic Staff Only [facility] [address] [place] [address] Nurse/Clinic Staff Only (Labs virtual visit. ) 10/06/2023 1:20 PM CDT Telemedicine [facility] [address] [place] [id number] Erin Ureña, BETHANIE Dysuria 10/06/2023 Orders Only [facility] [address] [place] [address] Erin Ureña S, WELL CONTROL INSTRUCTOR <No scans attached> 10/06/2023 Travel from Last 3 Months Immunizations Name Administration [...] Lung cancer Paternal Grandmother Other Son Norbert Guillian-Alamo Syndrome Anesthesia Malignant Hyperthermia No Family History [...] Outcome GA Total Labor Labor/2nd/3rd Weight Sex Type Anes PTL Bhakti A1 A5 Name Clin 35w0d 36w0d Last Filed Vital Signs Vital Sign Reading Time Taken Comments Blood Pressure 115/76 12/02/2023 9:17 AM CDT Pulse 75 12/02/2023 9:17 AM CDT Temperature 36.6 ??C (97.9 ??F) 10/09/2023 8:29 AM CD T Respiratory Rate 16 06/11/2023 10:05 AM SUPERVISOR YARD Oxygen Saturation 97% 12/02/2023 9:17 AM CDT Inhaled Oxygen Concentration - - Weight 74.4 kg (164 lb 1.6 oz) 12/02/2023 9:17 A M CDT Height 166.4 cm (5' 5.5) 12/02/2023 9:17 AM CDT Body Mass Index 26.89 12/02/2023 9:17 AM CDT Plan of Treatment Upcoming Encounters Date Type Department Care Team (Late st Contact Info) Description 12/11/2023 11:10 AM CDT Office Visit [facility] [address] [place] [address] Cecelia Moulton PA [address] [place] [address] 12/24/2023 10:00 AM CDT Office Visit [facility] [address] [place] [address] Elva Holly MD [address] [place] [address] 01/22/2024 1:30 PM CDT Office Visit [facility] [address] [place] [address] Vadim Jean MD [address] [place] [address] Health Maintenance Due Date Last Done Comments [...] 2023 03/19/2023, 02/22/2022, 09/13/2021, Additional history exists Influenza for age 50-64 01/12/2024 03/19/20, 03/16/2022, 02/09/2021, Additional history exists Mammogram for age 45-75 01/25/2024 01/25/20 23, 11/18/2020, 11/01/2017, Additional history exists BMI (ht and wt on same day) for age 18+ 12/01/2024 12/02/2023, 09/11/2022, 01/04/2022, Additional history exists Lipids for age 45-75 09/12/2027 09/11/2022, 11/18/2020, 09/02/2018, Additional history exists Pap test for age 21-65 09/12/2027 , 09/11/2022, 09/02/2018, Additional history exists Tdap Completed 05/01/2011 Hepatitis C screening for ag e 18-79 Completed 07/23/2019 Medical Devices Implanted Type Area Boat Painter Device Identifier Shelf Expiration Date Model / Serial / Lot Stent Uret [id number] Silhouette - [id number] Implanted:Qty: 1 on 09/13/2016 by Félix Dunaway MD at [facility] Right: [employer] [id number] / / [id number] Procedures Procedure Name Priority Date/Time Associated Diagnosis Comments CT ABDOMEN PELVIS W Routine 10/24/2023 9 :08 AM CDT Diverticulitis of large intestine with perforation without abscess or bleeding CT ABDOMEN PELVIS STONE PROTOCOL WO STAT 10/09/2023 9:40 AM CDT Pelvic pain Complicated UTI (urinary tract infection) History of nephrolithiasis CBC WITH AUTO DIFFERENTIAL STAT 10/09/2023 9:25 AM CDT Pelvic pain Complicated UTI (urinary tract infection) History of nephrolithiasis COMP METABOLIC PANEL STAT 10/09/2023 9:25 AM CDT Pelvic pain [...] Health Maintenance Results * CT ABDOMEN PELVIS W (10/24/2023 9:08 AM CDT) Anatomical Region Laterality Modality Abdomen, Pelvis, AORTA, LIVER, SPLEEN Computed Tomography 10/24/2023 10:2 8 AM CDT Impressions 10/24/2023 10:28 AM CDT Interval improvement in sigmoid diverticulitis and known contained perforation. Please note that all CT scans at this facility use dose modulation, iterative reconstruction, and/or weight-based dosing when appropriate to reduce radiation dose to as low as reasonably achievable. Dictated by Joe Myers MD @ 10/24/2023 10:28:11 AM (Electronically Signed) Narrative 10/24/2023 10:28 AM CDT For Patients: ??As a result of the Cures Act, medical imaging exams and procedure reports are released immediately into your electronic medical record. ??You may view this report before your referring provider. ??If you have questions, please contact your health care provider. INDICATION: Diverticulitis. TECHNIQUE: CT abdomen and pelvis acquired with 100 cc Omnipaque 350 IV contrast. COMPARISON: CT scan of the abdomen and pelvis 10/09/2023. FINDINGS: Lower chest: Unremarkable. Liver: Unremarkable. Normal in size and attenuation. No suspicious masses. Gallbladder and bile ducts: Status post cholecystectomy. Pancreas: Unremarkable. No mass or inflammation. Spleen: Unremarkable. Normal in size. No masses. Adrenal glands: Unremarkable. No nodules. Kidneys, ureters and urinary bladder: Tiny nonobstructing renal stones. No ureteral stone or hydronephrosis. No focal renal lesion. Unremarkable urinary bladder. GI tract: Interval improvement in acute sigmoid diverticulitis. The tiny bubbles of extraluminal gas consistent with known contained perforation and the surrounding inflammation have decreased since the previous exam. No diverticular abscess or disease progression identified. Unremarkable stomach and small bowel. Vasculature: Abdominal aorta is normal in caliber. Mesenteric arteries are patent. Lymph nodes: No lymphadenopathy. Peritoneum: Unremarkable. No free air or significant free fluid. Abdominal Wall: No abdominal wall mass or hernia. Pelvis: Unremarkable. No pelvic mass. Bones: Unremarkable for age. Procedure Note Joe Myers MD - 10/24/2023 For Patients: As a result of the Cures Act, medical imagingexams and procedure reports are released immediately into your electronicmedical record. You may view this report before your referring provider.If you have questions, please contact your health care provider. INDICATION: Diverticulitis. TECHNIQUE: CT abdomen and pelvis acquired with 100 cc Omnipaque 350 IV contrast. COMPARISON: CT scan of the abdomen and pelvis 10/09/2023. FINDINGS: Lower chest: Unremarkable. Liver: Unremarkable. Normal in size and attenuation. No suspicious masses. Gallbladder and bile ducts: Status post cholecystectomy. Pancreas: Unremarkable. No mass or inflammation. Spleen: Unremarkable. Normal in size. No masses. Adrenal glands: Unremarkable. No nodules. Kidneys, ureters and urinary bladder: Tiny nonobstructing renal stones. Noureteral stone or hydronephrosis. No focal renal lesion. Unremarkableurinary bladder. GI tract: Interval improvement in acute sigmoid diverticulitis. The tinybubbles of extraluminal gas consistent with known contained perforationand the surrounding inflammation have decreased since the previous exam.No diverticular abscess or disease progression identified. Unremarkablestomach and small bowel. Vasculature: Abdominal aorta is normal in caliber. Mesenteric arteries arepatent. Lymph nodes: No lymphadenopathy. Peritoneum: Unremarkable. No free air or significant free fluid. Abdominal Wall: No abdominal wall mass or hernia. Pelvis: Unremarkable. No pelvic mass. Bones: Unremarkable for age. IMPRESSION: Interval improvement in sigmoid diverticulitis and known containedperforation. Please note that all CT scans at this facility use dose modulation,iterative reconstruction, and/or weight-based dosing when appropriate toreduce radiation dose to as low as reasonably achievable. Dictated by Joe Myers MD @ 10/24/2023 10:28:11 AM (Electronically Signed) Delmi Gil MD CT * CT ABDOMEN PELVIS STONE PROTOCOL WO [...] WITH AUTO DIFFERENTIAL (10/09/2023 9:25 AM CDT) WHITE BLOOD COUNT 9.5 4.5 - 11.0 thou/cu mm 10/09/2023 9:29 AM CDT [facility] RED BLOOD COUNT 4.73 4.00 - 5.20 mil/cu mm 10/09/2023 9:29 AM CDT [facility] HEMOGLOBIN 14.8 12.0 - 16.0 g/dL 10/09/2023 9:29 AM CDT [facility] HEMATOCRIT 43.7 33.0 - 51.0 % 10/09/2023 9:29 AM CDT [facility] MCV 92 80 - 100 fL 10/09/2023 9:29 AM CDT [facility] MCH 31.3 26.0 - 34.0 pg 10/09/2023 9:29 AM CDT [facility] MCHC 33.9 32.0 - 36.0 g/dL 10/09/2023 9:29 AM CDT [facility] RDW 13.4 11.5 - 15.5 % 10/09/2023 9:29 AM CDT [facility] PLATELET COUNT 170 140 - 440 thou/cu mm 10/09/2023 9:29 AM CDT [facility] MPV 10.3 6.5 - 11.0 fL 10/09/2023 9:29 AM CDT [facility] % NEUT 77.8 % 10/09/2023 9:29 AM CDT [facility] % LYMPH 8.5 % 10/09/2023 9:29 AM CDT [facility] % MONO 11.1 % 10/09/2023 9:29 AM CDT [facility] % EOS 2.4 % 10/09/2023 9:29 AM CDT [facility] % BASO 0.2 % 10/09/2023 9:29 AM CDT [facility] ABSOLUTE NEUTROPHILS 7.4(H) 1.7 - 7.0 thou/cu mm 10/09/2023 9:29 AM CDT [facility] ABSOLUTE LYMPHOCYTES 0.8(L) 0.9 - 2.9 thou/cu mm 10/09/2023 9:29 AM CDT [facility] ABSOLUTE MONOCYTES 1.1(H) <0.9 thou/cu mm 10/09/2023 9:29 AM CDT [facility] ABSOLUTE EOSINOPHILS 0.2 <0.5 thou/cu mm 10/09/2023 9:29 AM CDT [facility] ABSOLUTE BASOPHILS 0.0 <0.3 thou/cu mm 10/09/2023 9:29 AM CDT [facility] Blood BLOOD SPECIMEN / Unknown Venipuncture / Unknown 10/09/2023 9:25 AM CDT 10/09/2023 9:26 AM CDT Kaley Farias MD HEMATOLOGY [facility] [address] [place] [address], [place] [phone] * (ABNORMAL) COMP METABOLIC PANEL (10/09/2023 9:25 AM CDT) SODIUM 141 136 - 145 mmol/L 10/09/2023 1:34 PM [facility] POTASSIUM 4.5 3.5 - 5.1 mmol/L 10/09/2023 1:34 PM [facility] CHLORIDE 101 98 - 107 mmol/L 10/09/2023 1:34 PM [facility] CO2,TOTAL 31(H) 22 - 29 mmol/L 10/09/2023 1:34 PM [facility] ANION GAP 9 5 - 18 10/09/2023 1:34 PM [facility] GLUCOSE 101(H) 70 - 99 mg/dL 10/09/2023 1:34 PM [facility] CALCIUM 9.5 8.6 - 10.0 mg/dL 10/09/2023 1:34 PM [facility] BUN 8 6 - 20 mg/dL 10/09/2023 1:34 PM [facility] CREATININE 0.58 0.50 - 0.90 mg/dL 10/09/2023 1:34 PM [facility] BUN/CREAT RATIO 14 10 - 20 4 1:34 PM [facility] eGFR >90 >90 mL/min/1.7 3m2 10/09/2023 1:34 PM [facility] Comment:As of 2021, eG FR is calculated by the CKD-EPI creatinine equation without race adjustment. ??eGFR can be influenced by muscle mass, exercise, and diet. ??The reported eGFR is an estimation only and is only applicable if the renal function is stable. ALBUMIN 4.6 4.0 - 4.9 g/dL 10/09/2023 1:34 PM [facility] PROTEIN,TOTAL 7.0 6.0 - 8.0 g/dL 10/09/2023 1:34 PM CDT [facility] BILIRUBIN,TOTAL 0.5 0.0 - 1.2 mg/dL 10/09/2023 1:34 PM CDT [facility] ALK PHOSPHATASE 81 35 - 104 IU/L 10/09/2023 1:34 PM CDT [facility] ALT (SGPT) 29 10 - 35 IU/L 10/09/2023 1:34 PM CDT [facility] AST (SGOT) 28 10 - 35 IU/L 10/09/2023 1:34 PM CDT [facility] Blood BLOOD SPECIMEN / Unknown Venipuncture / Unknown 10/09/2023 9:25 AM CDT 10/09/2023 9:26 AM CDT Kaley Farias MD CHEMISTRY [facility] [address] [place] [address] * UA W/ SEDIMENT EXAM REFLEXED PER CRITERIA (10/09/2023 8:41 AM CDT) Only the most recent of2 resultswithin the time period is included. COLOR Yellow Yellow Color 10/09/2023 9:15 AM CDT [facility] CLARITY Clear Clear Clarity 10/09/2023 9:15 AM CDT [facility] SPECIFIC GRAVITY,URINE 1.010 1.010, 1.015, 1.020, 1.025 10/09/2023 9:15 AM CDT [facility] PH,URINE 7.0 6.0, 7.0, 8.0, 5.5, 6.5, 7.5, 8.5 10/09/2023 9:15 AM CDT [facility] UROBILINOGEN, QUALITATIVE Normal Normal EU/dl 10/09/2023 9:15 AM CDT [facility] PROTEIN, URINE Negative Negative mg/dL 10/09/2023 9:15 AM CDT [facility] GLUCOSE, URINE Negative Negative mg/dL 10/09/2023 9:15 AM CDT [facility] KETONES,URINE Negative Negative mg/dL 10/09/2023 9:15 AM CDT [facility] BILIRUBIN,URI NE Negative Negative 10/09/2023 9:15 AM CDT [facility] OCCULT BLOOD,URINE Negative Negative 10/09/2023 9:15 AM CDT [facility] NITRITE Negative Negative 10/09/2023 9:15 AM CDT [facility] LEUKOCYTE ESTERASE Negative Negative 10/09/2023 9:15 AM CDT [facility] Urine URINE SPECIMEN / Unknown Non-Blood / Unknown 10/09/2023 8:41 AM CDT 10/09/2023 9:12 AM CDT Kaley Farias MD URINE Performing Organization Address [facility]/ZIP Co de Phone Number [facility] [address] [place] [address], [place] [phone] * TRICHOMONAS, SANDRA, AND BACTERIAL VAGINOSIS BY JORGE (10/06/2023 2:34 PM CDT) SANDRA SPECIES Negative Negative 1:21 AM CDT [facility] SANDRA GLABRATA Negative Negative 10/07/2023 1:21 AM CDT [facility] TRICHOMONAS VVA Negative Negative 1:21 AM CDT [facility] BACTERIAL VAGINOSIS Negative Negative 10/07/2023 1:21 AM CDT [facility] Other VAGINAL SWAB / Unknown Non-Blood / Unknown 10/06/2023 2:34 PM CDT 10/06/2023 2:34 PM CDT Erin Ureña NP MICROBIOLOGY [facility] [address] [place] [address], [place] * (ABNORMAL) URINALYSIS MICROSCOPIC (10/06/2023 2:20 PM CDT) RBC 0-2 0-2, None Seen /HPF 10/06/2023 10:09 PM CDT [facility] WBC >100(A) 0-2, 3-5, None Seen /HPF 10/06/2023 10:09 PM CDT [facility] BACTERIA Few None Seen, Rare, Few Bacteria/ HPF 10/06/2023 10:09 PM CDT [facility] EPITHELIAL CELLS None Seen None Seen, Few Epi/HPF 10/06/2023 10:09 PM CDT [facility] HYALINE CASTS 0-2 0-2, 3-5 /LPF 10/06/2023 10:09 PM CDT [facility] Urine URINE SPECIMEN / Unknown Non-Blood / Unknown 10/06/2023 2:20 PM CDT 10/06/2023 2:20 PM CDT Erin Ureña NP URINE [facility] [address] [place] [address], * (ABNORMAL) URINE CULTURE (10/06/2023 2:20 PM CDT) CULTURE RESULT(A) 10/09/2023 7:09 AM CDT [facility] CULTURE >100,000 CFU/mL Escherichia coli 10/09/2023 7:09 AM CDT [facility] Urine URINE SPECIMEN / Unknown Non-Blood [...] NITROFURANTOIN <=16: S Erin Ureña NP MICROBIOLOGY [facility] [address] [place] [address], * XR MAMMO THERESA BILAT SCREEN (01/24/2023 [...] For Patients: As a result of the Century Cures Act, medical imaging exams and procedure reports are released immediately into your electronic medical record. You may view this report before your referring provider. If you have questions, please contact your health care provider. XR MAMMO THERESA BILAT SCREEN [[id number]] CLINICAL HISTORY: ??This is an asymptomatic 57 y.o. patient. INDICATION FOR EXAM: Mammogram Screening. TECHNIQUE: CC & MLO views were obtained. ??This study was evaluated with the assistance of Computer-Aided Detection. Breast Tomosynthesis was used in interpretation. COMPARISON FILM: Yes 11/18/20 [employer] 11/01/17 [facility] FINDINGS: ??The breasts are heterogeneously dense, which may obscure small masses. There are no dominant masses, suspicious micro calcifications or areas of architectural distortion. Cecelia ROCA MAMMO * (ABNORMAL) LIPID PANEL W REFLEX MEASURED LDL (09/11/2022 9:41 AM CDT) CHOLESTEROL,TOTAL 213 mg/dL 023 6:49 PM CDT [facility] Comment: Cholesterol, Total Reference Ranges Desirable <200 mg/dL Borderline 200-239 mg/dL High >=240 mg/dL TRIGLYCERIDES 83 <150 mg/dL 09/11/2022 6:49 PM CDT [facility] HDL CHOLESTEROL 65 >40 mg/dL 6:49 PM CDT [facility] NON-HDL CHOLESTEROL 148(H) <145 mg/dl 09/11/2022 6:49 PM CDT [facility] CHOL/HDL RATIO 3.28 <4.50 09/11/2022 6:49 PM CDT [facility] LDL CHOLESTEROL 131(H) <=130 mg/dL 09/11/2022 6:49 PM CDT [facility] VLDL CHOLESTEROL 17(L) >30 mg/dL 09/12/19 23 6:49 PM CDT [facility] PROVIDER ORDERED STATUS RANDOM 09/11/2022 6:49 PM CDT [facility] Blood BLOOD SPECIMEN / Unknown Venipuncture / Unknown 09/11/2022 9:41 AM CDT 09/11/2022 9:43 AM CDT Cecelia ROCA CHEMISTRY [facility] [address] [place] [address], * HPV HIGH RISK (09/11/2022 9:15 AM CDT) TYPE 16 Negative Negative 09/14/2022 11:02 AM CDT [facility] TYPE 18 Negative Negative 09/14/2022 11:02 AM CDT [facility] OTHER HIGH RISK TYPES Negative Negative 09/14/2022 11:02 AM CDT [facility] Other (Cervical) Non-Blood / Unknown 09/11/2022 9:15 AM CDT 09/12/2022 1:12 PM CDT Narrative [facility] - 09/14/2022 11:02 AM CDT HPV types 16, 18, 31, 33, 35, 39, 45, 51, 52, 56, 58, 59, 66 and 68 DNA were undetectable or below the pre-set threshold. Methodology: Sara Dillon 4800 HPV Test Cecelia ROCA MICROBIOLOGY [facility] [address] [place] [address], * OCCULT BLOOD IFOBT STOOL (07/26/2020 11:15 AM CDT) STOOL BLOOD ,IFOBT Negative Negative 07/27/2020 11:48 AM CDT [facility] Stool STOOL SPECIMEN / Unknown Non-Blood / Unknown 07/26/2020 11:15 AM CDT 07/27/2020 11:36 AM CDT Cecelia ROCA LABORATORY [facility] [address] [place] [address], * ANTI HCV (07/23/2019 11:49 AM CDT) HEPATITIS C ANTIBODY Non-React lul Non-React lul 07/23/2019 4:04 PM CDT [facility] Comment:Antibodies to HCV no t detected; does not exclude the possibility of exposure to HCV. Blood BLOOD SPECIMEN / Unknown Venipuncture / Unknown 07/23/2019 11:49 AM CDT 07/23/2019 11:49 AM CDT Elva Holly MD SEND OUTS [facility] [address] [place] [address], [place] from Last 3 Months or Most Recently Relevant to Health Maintenance Advance Directives * Full Code (Latest Code Status on File) Date Activated Date Inactivated Comments 09/13/2016 11:17 AM 09/13/2016 6:48 PM Care Teams Flight Deck Officer Relationship Specialty Start Date End Date Cecelia Moulton PA [address] [place] [address] PCP - General Physician Salt Manager 02/23/19 Ramona Shook MD Rheumatology 04/14/14 Elva Holly MD [address] [facility] [address] [place] [address] Rheumatology Rheumatology 07/23/19
--- OUTSIDE RECORDS SUMMARY | 2023-12-10 09:22 | XMS_ITS | Continuity of Care Document ---
Author Organization [facility] Address [address] [place] [address] Phone Care Team Providers Care Basin Tender Name Role Phone Ramona Shook MD Unavailable [...] route every day 1 tablet - Active lorazepam 0.5 mg Tab asw needed - Active ibuprofen 600 mg Tab as needed - Active Actemra ACTPen 162 mg/0.9 [...] [facility] , [address], [place], [address], [place] tel:[phone] [facility] , No Information 0 Boone Greene. [facility] [address], [place], [address], [place]. tel:[phone] [facility] , [address], [place], [address], [place] tel:[phone] [facility] , No Information 0 Federica Bolivar. [facility] [address], [place], [address], [place]. tel:[phone] [facility] , [address], [place], [address], [place] tel:[phone] [facility] , No Information 0 Boone Greene. [facility] [address], [place], [address], [place]. tel:[phone] Office/Outpa tient Visit, Est [facility] , [address], [place], [address], [place] tel:[phone] [facility] , Rheumatoid arthritis (chief complaint)Co ugh (chief complaint)Mo nitor Chronic High Risk Meds (chief complaint) Rheu arthritis w rheu factor mult site w/o org/sys involvCoughO ther terminal clerk (current) drug therapy 9 Boone Greene. [facility] [address], [place], [address], [place]. tel:[phone] Referring Provider: Ramona Carrington, [facility] [address], [place], [address]. tel:[phone] Office/Outpa tient Visit, Est [facility] , [address], [place], [address], [place] tel:[phone] [facility] , Rheumatoid arthritis (chief complaint) Rheu arthritis w rheu factor mult site w/o org/sys involvEffusi on, right kneeOther terminal clerk (current) drug therapy 9 Boone Greene. [facility] [address], [place], [address], [place]. tel:[phone] Referring Provider: Ramona Carrington, [facility] [address], [place], [address]. tel:[phone] Office/Outpa tient Visit, Est [facility] , [address], [place], [address], [place] tel:[phone] [facility] , Rheumatoid arthritis (chief complaint)Ri ght knee pain (chief complaint)Mo nitor Chronic High Risk Meds (chief complaint) Rheu arthritis w rheu factor mult site w/o org/sys involvPain in right kneeVitamin D deficiencyOt her senior living (current) drug therapy 9 Boone Greene. [facility] [address], [place], [address], [place]. tel:[phone] Referring Provider: Ramona Carrington, [facility] [address], [place], [address]. tel:[phone] Office/Outpa tient Visit, Est [facility] , [address], [place], [address], [place] tel:[phone] [facility] , Rheumatoid arthritis (chief complaint)Vi tamin D deficiency (chief complaint)Mo nitor Chronic High Risk Meds (chief complaint) Rheu arthritis w rheu factor mult site w/o org/sys involvOther senior living (current) drug therapyPain in left hipPain in right knee 9 Boone Greene. [facility] [address], [place], [address], [place]. tel:[phone] Referring Provider: Ramona Carrington, [facility] [address], [place], [address]. tel:[phone] Office/Outpa tient Visit, Est [facility] , [address], [place], [address], [place] tel:[phone] [facility] , Rheumatoid arthritis (chief complaint)Mo nitor Chronic High Risk Meds (chief complaint) Rheu arthritis w rheu factor [facility] site w/o org/sys involvOther senior living (current) drug therapy 0 8 Boone Greene. [facility] [address], [place], [address], [place]. tel:[phone] Referring Provider: Ramona Carrington, [facility] [address], [place], [address]. tel:[phone] Office/Outpa tient Visit, Est [facility] , [address], [place], [address], [place] tel:[phone] [facility] [place] Rheumatoid arthritis (chief complaint)Ri ght wrist tenosynovect carmita (chief complaint)Mo nitor Chronic High Risk Meds (chief complaint) Rheu arthritis w rheu factor [facility] site w/o org/sys involvOther synovitis and tenosynoviti s, right handOther acquired deformities of unspecified footOther terminal clerk (current) drug therapy 8 Boone Greene. [facility] [address], [place], [address], [place]. tel:[phone] Referring Provider: Ramona Carrington, [facility] [address], [place], [address]. tel:[phone] Office/Outpa tient Visit, Est [facility] , [address], [place], [address], [place] tel:[phone] [facility] , Rheumatoid [...] [address], [place], [address], [place]. tel:[phone] Referring Provider: Ramona Carrington, [facility] [address], [place], [address]. tel:[phone] Office/Outpa tient Visit, Est [facility] , [address], [place], [address], [place] tel:[phone] [facility] , Rheumatoid arthritis (chief complaint)Ri ght wrist pain (chief complaint)Mo nitor Chronic High Risk Meds (chief complaint) RA w/ rheumatoid factor of multiple sitesOther synovitis and tenosynoviti s, right handOther acquired deformities of unspecified footLong term current drug therapy 8 Boone Greene. [facility] [address], [place], [address], [place]. tel:[phone] Referring Provider: Ramona Carrington, [facility] [address], [place], [address]. tel:[phone] Office/Outpa tient Visit, Est [facility] , [address], [place], [address], [place] tel:[phone] [facility] , Rheumatoid arthritis (chief complaint)Mo nitor Chronic High Risk Meds (chief complaint) RA w/ rheumatoid factor of multiple sitesPain in unspecified footOther synovitis and tenosynoviti s, right handLong term current drug therapy 7 Boone Greene. [facility] [address], [place], [address], [place]. tel:[phone] Referring Provider: Ramona Carrington, [facility] [address], [place], [address]. tel:[phone] Office/Outpa tient Visit, Est [facility] , [address], [place], [address], [place] tel:[phone] [facility] , Rheumatoid arthritis (chief complaint)Mo nitor Chronic High Risk Meds (chief complaint)Medina mmer toes (chief complaint) RA w/ rheumatoid factor of multiple sitesPneumon iaOther acquired hammer toesLong term current drug therapy 7 Boone Greene. [facility] [address], [place], [address], [place]. tel:[phone] Referring Provider: Ramona Carrington, [facility] [address], [place], [address]. tel:[phone] Office/Outpa tient Visit, Est [facility] , [address], [place], [address], [place] tel:[phone] [facility] , Rheumatoid arthritis (chief complaint)Mo nitor Chronic High Risk Meds (chief complaint) RA w/ rheumatoid factor of multiple sitesPain in left hipLong term current drug therapy 6 Boone Greene. [facility] [address], [place], [address], [place]. tel:[phone] Referring Provider: Ramona Carrington, [facility] [address], [place], [address]. tel:[phone] Office/Outpa tient Visit, Est [facility] , [address], [place], [address], [place] tel:[phone] [facility] [place] Rheumatoid arthritis (chief complaint)Mo nitor Chronic High Risk Meds (chief complaint) RA w/ rheumatoid factor of multiple sitesLong term current drug therapy Boone Greene. [facility] [address], [place], [address], [place]. tel:[phone] Referring Provider: Ramona Carrington, [facility] [address], [place], [address]. tel:[phone] Office/Outpa tient Visit, Est [facility] , [address], [place], [address], [place] tel:[phone] [facility] , Rheumatoid arthritis (chief complaint)Mo nitor Chronic High Risk Meds (chief complaint) Rheumatoid arthritisThe rapeutic Drug Monitoring Boone Greene. [facility] [address], [place], [address], [place]. tel:[phone] Referring Provider: Ramona Carrington, [facility] [address], [place], [address]. tel:[phone] Office/Outpa tient Visit, Est [facility] , [address], [place], [address], [place] tel:[phone] [facility] , Rheumatoid arthritis (chief complaint)Mo nitor Chronic High Risk Meds (chief complaint) Rheumatoid ArthritisThe rapeutic Drug Monitoring Boone Greene. [facility] [address], [place], [address], [place]. tel:[phone] Referring Provider: Ramona Carrington, [facility] [address], [place], [address]. tel:[phone] Office/Outpa tient Visit, Est [facility] , [address], [place], [address], [place] tel:[phone] [facility] , Rheumatoid Arthritis (chief complaint)Mo nitor chronic high risk medications (chief complaint) Rheumatoid ArthritisThe rapeutic Drug Monitoring Boone Greene. [facility] [address], [place], [address], [place]. tel:[phone] Referring Provider: Ramona Carrington, [facility] [address], [place], [address]. tel:[phone] Office/Outpa tient Visit, Est [facility] , [address], [place], [address], [place] tel:[phone] [facility] , Rheumatoid Arthritis (chief complaint)Dr y eyes (chief complaint)Mo nitor chronic high risk medications (chief complaint) Rheumatoid ArthritisOth er tenosynoviti s of hand and wristTherape [facility] Drug MonitoringTe ar film insufficienc y, unspecified 4 Boone Greene. [facility] [address], [place], [address], [place]. tel:[phone] Referring Provider: Ramona Carrington, [facility] [address], [place], [address]. tel:[phone] Office/Outpa tient Visit, Est [facility] , [address], [place], [address], [place] tel:[phone] [facility] , Rheumatoid Arthritis (chief complaint)Mo nitor chronic high risk medications (chief complaint) Rheumatoid [facility]ritisThe [facility] Drug MonitoringTe ar film insufficienc y, unspecified 3 Boone Greene. [facility] [address], [place], [address], [place]. tel:[phone] Referring Provider: Ramona Carrington, [facility] [address], [place], [address]. tel:[phone] Office/Outpa tient Visit, Est [facility] , [address], [place], [address], [place] tel:[phone] [facility] , Rheumatoid Arthritis (chief complaint)Mo nitor chronic high risk medications (chief complaint) Rheumatoid ArthritisGan glion, unspecifiedE nthesopathy of hip regionTherap eutic Drug Monitoring 3 Boone Greene. [facility] [address], [place], [address], [place]. tel:[phone] Referring Provider: Ramona Carrington, [facility] [address], [place], [address]. tel:[phone] Office/Outpa tient Visit, Est [facility] , [address], [place], [address], [place] tel:[phone] [facility] , Rheumatoid Arthritis (chief complaint)Mo nitor chronic high risk medications (chief complaint) Rheumatoid ArthritisThe [facility]utic Drug Monitoring 0 3 Boone Greene. [facility] [address], [place], [address], [place]. tel:[phone] Referring Provider: Ramona Carrington, [facility] [address], [place], [address]. tel:[phone] Office/Outpa tient Visit, Est [facility] , [address], [place], [address], [place] tel:[phone] [facility] , Rheumatoid Arthritis (chief complaint)Mo nitor chronic high risk medications (chief complaint) Rheumatoid ArthritisPai n in limbTherapeu tic Drug Monitoring 2 Boone Greene. [facility] [address], [place], [address], [place]. tel:[phone] Family History Family Member Type Diagnosis Age At Onset father Problem (finding) hypertension Father Problem (finding) Allergies Paternal grandfather Problem (finding) cancer of colon maternal grandmother Problem (finding) hypertension Father Problem (finding) malignant neoplasm of p ancreas Paternal grandfather Problem (finding) Diabetes mellit us maternal grandfather Problem (finding) heart disease Brother Problem (finding) Allergies Payers Payer name Insurance type Covered libertarian ID Jovan ceja(s) [id number] Social History Type Description Quantity Date Captured [...] hand) ordered Referral Referred To: Coretta Healy [address] [place] [address] [place], [place] [phone] Ordered: Referrals: Hand surgery. Coretta Healy. Evaluate and treat ordered History Of [...] Information Instructions Date Instruction Additional Infor mation Alma will have drug monitoring labs again in [place] in November. Related to Therapeutic Drug Monitoring The patient will con tinue the current medical regimen without change. Related to Rheumatoid Arthritis Assessments Type Assessment Date No Information Patient Care Teams Name Effective Dates (start - stop) Status Members No Information
--- NOTE | 2023-12-10 10:44 | W.ANESCHARGE ---
Anesthesia Charges Start Date/Time Anesthesia Start Date: 12/10/23 Anesthesia Start Time: 10:08 Stop Date/Time Anesthesia Stop Date: 12/10/23 Anesthesia Stop Time: 10:41
--- NOTE | 2023-12-10 11:49 | W.ANESCHARGE ---
Anesthesia Charges Start Date/Time Anesthesia Start Date: 12/10/23 Anesthesia Start Time: 10:08 Stop Date/Time Anesthesia Stop Date: 12/10/23 Anesthesia Stop Time: 10:41
== END 2023-12-10 09:18 | disposition home or self-care (01) ==
LOC: OP CLINIC 09:18
PROVIDERS: PCP Physician Assistant Medical; Visit Provider Surgery
DX: Z12.11 Encounter for screening for malignant neoplasm of colon (principal); K57.30 Diverticulosis of large intestine without perforation or abscess without bleeding; K62.1 Rectal polyp; K64.4 Residual hemorrhoidal skin tags; Z83.719 Family history of colon polyps, unspecified
CPT/HCPCS: 00811; 45385; 88305; J2704